=== PATIENT | male | born 1960 | race Caucasian/White ===

== ENCOUNTER 2021-07-23 04:07 | Emergency (ER) | payer BC ==
[~2021-07-23] VITALS: Ht 177.8 cm; Wt 78.2 kg
--- NOTE | 2021-07-23 05:04 | PHYS DOC ---
Past Medical History Past Surgical History: No Surgical History Smoking Status: Never Smoker Alcohol Use: None General Adult EDM: Chief Complaint: FLU SYMPTOM HPI: HPI: Patient is a 61-year-old male presenting for constellation of symptoms. States he started developing URI symptoms after being exposed to his son and who had similar self-limiting symptoms that resolved after 4 days. He is currently on day 6 of symptoms and reports ongoing nasal congestion, rhinorrhea, postnasal drip, sore throat, shortness of breath, fever and chills, aches, fatigue, nausea and looser stools than usual. He has been taking ibuprofen and full-strength aspirin at home without significant relief, nothing known makes worse. He does not go to the doctor, has no primary care physician, has no known medical issues and takes no medications routinely on a daily basis. Denies any tobacco alcohol or illicit drug abuse. He did not get the COVID-19 vaccination Review of Systems: Review of Systems: Fourteen body systems of review of systems have been reviewed. See HPI for pertinent positives and negative responses, other lund all other systems are negative, non-pertinent or non-contributory Heart Score: C/O Chest Pain: No HEART Score for Chest Pain: HEART Score for Chest Pain Response (Comments) Value History Slighlty/Non-Suspicious 0 ECG Normal 0 Age >45 - < 65 1 Risk Factors 1 or 2 Risk Factors 1 Troponin < Normal Limit 0 Total 2 Risk Factors: Risk Factors: DM, Current or recent (<one month) smoker, HTN, HLP, family history of CAD, obesity. Risk Scores: Score 0 - 3: 2.5% MACE over next 6 weeks - Discharge Home Score 4 - 6: 20.3% MACE over next 6 weeks - Admit for Clinical Observation Score 7 - 10: 72.7% MACE over next 6 weeks - Early Invasive Strategies Current Medications: Current Medications Medications (Trade) Dose Ordered Sig/Florecita Start Time Stop Time Status Last Admin Dose Admin Acetaminophen (Tylenol) 1,000 mg 1X ONCE 07/23/21 05:00 07/23/21 05:01 UNV Allergies: Allergies: Allergies Coded Allergies Type Severity Reaction Last Updated Verified No Known Drug Allergies 07/23/21 No Physical Exam: PE: General: Appears well, non toxic but does appear slightly uncomfortable and is hot to the touch Skin: Warm, dry. Normal for ethnicity. HEENT: Atraumatic. PERRLA. Rhinorrhea and congestion. Nasal turbinates boggy b/l. Moist mucous membranes. Uvula midline. Maintaining secretions. No phonation changes. Neck: Trachea midline. Normal ROM. No stridor. Respiratory: Normal WOB. CTAB w/o w/r/r. No tachypnea. Cardiovascular: Regular rate and rhythm. Normal peripheral perfusion. Abdomen: Soft. Non tender. No distension. Back: Normal ROM. Musculoskeletal: No swelling or deformity. Neuro: Alert and oriented x 4. MAEE. Lymph: No cervical LAD. Psych: Normal affect and mood. Current Patient Data: Vital Signs: Vital Signs Date Time Temp Pulse Resp B/P (MAP) Pulse Ox O2 Delivery O2 Flow Rate FiO2 07/23/21 04:35 102.7 95 20 114/70 (85) 95 Room Air 102.7 EKG: EKG: EKG ordered and interpreted by myself 0517 hrs. as sinus rhythm at 78 bpm, unremarkable intervals, no axis deviation, suspect T wave inversion noted in lead III otherwise no new ischemic findings, no STEMI Radiology/Procedures: Radiology/Procedures: EXAM: AP View of the chest DATE: 07/23/2021 5:26 AM INDICATION: Reason: COUGH, COVID+ / Spl. Instructions: / History: COMPARISON: No Prior FINDINGS: The heart is not enlarged. Mediastinal and hilar contours are normal. Patchy opacities bilaterally in the lower lungs peripherally. No pleural effusion or pneumothorax. IMPRESSION: 1. Bilateral parenchymal opacities likely consolidative process such as COVID pneumonia Electronically signed by: Toby Ruffin MD (07/23/2021 5:49 AM) [facility] Course & Med Decision Making: Course & Med Decision Making Pertinent Labs and Imaging studies reviewed. (See chart for details) [] Dragon Disclaimer: Dragon Disclaimer: This electronic medical record was generated, in whole or in part, using a voice recognition dictation system. Departure Departure Impression: Primary Impression: COVID-19 Disposition: HOME / SELF CARE / HOMELESS Condition: STABLE Referrals: NO PCP (PCP) Additional Instructions: As discussed prior to your departure, your vitals, physical exam and comprehensive ER work-up were nonconcerning for any emergent or surgical issues. You are found to be positive for COVID-19 and the findings on your chest x-ray were suspicious for developing bilateral pneumonia. We discussed potential treatment plans and joint decision was made to start antibiotic therapy with close outpatient follow-up when safe to do so with continued supportive care practices recommended. Please take prescribed antibiotic as scheduled to completion. In addition, please check your oxygen reading using a finger pulse ox and/or smart watch and contact your primary care provider and/or present back to the ER if your oxygen level ever drops below 90%. Please utilize Tylenol and/or ibuprofen for aches, pains and fever. If any concerning signs or symptoms present prior to outpatient follow-up please do not hesitate to come back for repeat evaluation. Scripts Azithromycin (AZITHROMYCIN TABLET) 250 Mg Tablet 250 MG PO DAILY for ANTI-BIOTIC for 4 Days, #4 TAB 0 Refills Prov: BELINDA HICKEY DO 07/23/21 BELINDA HICKEY DO Jul 23, 2021 05:04
[2021-07-23 05:26] LABS: BASO % 1 % (0-3); EOS % 0 % (0-3); HEMATOCRIT 40.2 % (39.0-53.0); HEMOGLOBIN 14.4 g/dL (13.0-17.5); LYMPH # 0.6 x10^3/uL (1.0-4.8); LYMPH % 21 % (24-48); MEAN CORPUSCULAR HEMOGLOBIN 33 pg (25-35); MEAN CORPUSCULAR HGB CONC 36 g/dL (31-37); MEAN CORPUSCULAR VOLUME 91 fL (79-100); MONO # 0.2 x10^3/uL (0.0-1.1); MONO % 9 % (0-9); NEUT # 1.8 x10^3/uL (1.8-7.7); NEUT % 69 % (31-73); PLATELET COUNT 128 x10^3/uL (140-400); RED BLOOD COUNT 4.41 x10^6/uL (4.30-5.70); RED CELL DISTRIBUTION WIDTH 12.7 % (11.5-14.5); WHITE BLOOD COUNT 2.6 x10^3/uL (4.0-11.0)
[2021-07-23] MEDS ORDERED: ACETAMINOPHEN 500 MG TABLET PO ONE (05:30)
[2021-07-23 05:42] LABS: CALCIUM 7.9 mg/dL (8.5-10.1); CREATININE 1.1 mg/dL (0.7-1.3); GFR 68.3
--- NOTE | 2021-07-23 05:51 | RAD ---
EXAM: AP View of the chest DATE: 07/23/2021 5:26 AM INDICATION: Reason: COUGH, COVID+ / Spl. Instructions: / History: COMPARISON: No Prior FINDINGS: The heart is not enlarged. Mediastinal and hilar contours are normal. Patchy opacities bilaterally in the lower lungs peripherally. No pleural effusion or pneumothorax. IMPRESSION: 1. Bilateral parenchymal opacities likely consolidative process such as COVID pneumonia Electronically signed by: Toby Ruffin MD (07/23/2021 5:49 AM) DEONTE
[2021-07-23 05:56] LABS: ALBUMIN 3.1 g/dL (3.4-5.0); ALBUMIN/GLOBULIN RATIO 1.1 (1.0-1.7); TOTAL BILIRUBIN 0.7 mg/dL (0.2-1.0); TOTAL PROTEIN 5.9 g/dL (6.4-8.2)
[2021-07-23 06:05] VITALS: BP 95/66
[2021-07-23] MEDS ORDERED: AZIT250T6 PO (06:15)
[2021-07-23] MEDS ORDERED: AZITHROMYCIN 250 MG TABLET. PO ONE (06:30)
--- NOTE | 2021-07-23 07:19 | EKG ---
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
== END 2021-07-23 06:33 | disposition home or self-care (01) ==
LOC: ER 04:07
DX: U07.1 COVID-19 (principal)
CPT/HCPCS: 36415; 71045; 80053; 83605; 84484; 85025; 87040; 87426; 93005; 99285-25

== ENCOUNTER 2021-07-26 03:34 | Inpatient (IN) | payer BC ==
[~2021-07-26] VITALS: Ht 182.9 cm; Wt 71.0 kg
[~2021-07-26 03:34] MED LIST: AZIT250T6 PO
--- NOTE | 2021-07-26 03:57 | PHYS DOC ---
Past Medical History Past Surgical History: No Surgical History Smoking Status: Never Smoker Alcohol Use: None General Adult EDM: Chief Complaint: SHORTNESS OF BREATH HPI: HPI: Patient is a 61 year old male without pertinent past medical history who presents with fever, chills, fatigue, and low pulse oximetry readings. Tested positive for Covid earlier this week. Symptoms have persisted despite treatment with Tylenol, ibuprofen he continues to have fevers. He checked his pulse ox and it was dropping into the 80s so presented for emergency treatment. Denies chest pain, lower extremity edema. He is not vaccinated against Covid Review of Systems: Review of Systems: Constitutional: Ports fever, chills, and fatigue [] Eyes: Denies change in visual acuity. [] HENT: Denies nasal congestion or sore throat. [] Respiratory: Reports cough, shortness of breath Cardiovascular: Denies chest pain or edema. [] GI: Denies abdominal pain, nausea, vomiting, bloody stools or diarrhea. [] : Denies dysuria. [] Musculoskeletal: Denies back pain or joint pain. [] Integument: Denies rash. [] Neurologic: Denies headache, focal weakness or sensory changes. [] Endocrine: Denies polyuria or polydipsia. [] Lymphatic: Denies swollen glands. [] Psychiatric: Denies depression or anxiety. [] Heart Score: C/O Chest Pain: No Risk Factors: Risk Factors: DM, Current or recent (<one month) smoker, HTN, HLP, family history of CAD, obesity. Risk Scores: Score 0 - 3: 2.5% MACE over next 6 weeks - Discharge Home Score 4 - 6: 20.3% MACE over next 6 weeks - Admit for Clinical Observation Score 7 - 10: 72.7% MACE over next 6 weeks - Early Invasive Strategies Current Medications: Current Medications Medications (Trade) Dose Ordered Sig/Florecita Start Time Stop Time Status Last Admin Dose Admin Dexamethasone Sodium Phosphate (Decadron) 6 mg 1X ONCE 07/26/21 04:00 07/26/21 04:01 Allergies: Allergies: Allergies Coded Allergies Type Severity Reaction Last Updated Verified No Known Drug Allergies 07/23/21 No Physical Exam: PE: Constitutional: Ill-appearing, no distress HENT: Normocephalic, atraumatic, Eyes: conjunctiva normal, no discharge. [] Neck: Normal range of motion, no tenderness, supple, no stridor. [] Cardiovascular:Heart rate regular rhythm, no murmur [] Lungs & Thorax: Crackles in bilateral bases and mixed expiratory wheezes throug hout. Slight tachypnea. Satting in low 90s on 2 L/min nasal cannula. Abdomen: Bowel sounds normal, soft, no tenderness, no masses, no pulsatile masses. [] Skin: Warm, dry, no erythema, no rash. [] Back: No tenderness, no CVA tenderness. [] Extremities: No tenderness, no cyanosis, no clubbing, ROM intact, no edema. [] Neurologic: Alert and oriented X 3, normal motor function, normal sensory function, no focal deficits noted. [] Psychologic: Affect normal, judgement normal, mood normal. [] EKG: EKG: [] Radiology/Procedures: Radiology/Procedures: [] Course & Med Decision Making: Course & Med Decision Making Pertinent Labs and Imaging studies reviewed. (See chart for details) Is a 61-year-old male without pertinent past medical history who was recently diagnosed with Covid. On arrival was hypoxic in the 80s. Corrected with 2 L/min nasal cannula. We will obtain chest x-ray, EKG, basic labs. We will give dexamethasone 6 mg. Will clearly require admission for hypoxic respiratory failure in the setting of Covid infection. [id number] Scar Disclaimer: Scar Disclaimer: This electronic medical record was generated, in whole or in part, using a voice recognition dictation system. Departure Departure Impression: Primary Impression: Respiratory failure with hypoxia Additional Impression: COVID-19 Disposition: ADMITTED INPATIENT Admitting Physician: LAYLA (Jannie) Condition: STABLE Referrals: NO PCP (PCP) PATRICE PERALTA MD Jul 26, 2021 03:57
[2021-07-26 03:59] LABS: BASO % 1 % (0-3); EOS % 0 % (0-3); HEMATOCRIT 43.4 % (39.0-53.0); HEMOGLOBIN 15.6 g/dL (13.0-17.5); LYMPH # 0.6 x10^3/uL (1.0-4.8); LYMPH % 10 % (24-48); MEAN CORPUSCULAR HEMOGLOBIN 32 pg (25-35); MEAN CORPUSCULAR HGB CONC 36 g/dL (31-37); MEAN CORPUSCULAR VOLUME 90 fL (79-100); MONO # 0.2 x10^3/uL (0.0-1.1); MONO % 3 % (0-9); NEUT # 5.1 x10^3/uL (1.8-7.7); NEUT % 86 % (31-73); PLATELET COUNT 183 x10^3/uL (140-400); RED BLOOD COUNT 4.81 x10^6/uL (4.30-5.70); RED CELL DISTRIBUTION WIDTH 13.1 % (11.5-14.5); WHITE BLOOD COUNT 5.9 x10^3/uL (4.0-11.0)
[2021-07-26] MEDS ORDERED: DEXAMETHASONE SOD PHOS 4 MG/ML VIAL IVP ONE (04:00)
[2021-07-26 04:06] LABS: CALCIUM 8.4 mg/dL (8.5-10.1); CREATININE 1.2 mg/dL (0.7-1.3); GFR 61.8; POTASSIUM 3.8 mmol/L (3.5-5.1)
[2021-07-26 04:12] LABS: ALBUMIN/GLOBULIN RATIO 0.8 (1.0-1.7); TOTAL BILIRUBIN 0.7 mg/dL (0.2-1.0); TOTAL PROTEIN 6.8 g/dL (6.4-8.2)
--- NOTE | 2021-07-26 04:14 | RAD ---
EXAM: AP View of the chest DATE: 07/26/2021 3:50 AM INDICATION: Reason: sob, covid / Spl. Instructions: / History: COMPARISON: 07/23/2021 FINDINGS: The heart is not enlarged. Mediastinal and hilar contours are normal. Bilateral parenchymal airspace opacities are new and increased compared to 07/23/2021. No pleural effusion or pneumothorax. IMPRESSION: Bilateral parenchymal airspace opacities are new and increased compared to 07/23/2021. Electronically signed by: Toby Ruffin MD (07/26/2021 4:11 AM) DEONTE
--- NOTE | 2021-07-26 06:30 | EKG ---
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
[2021-07-26 07:40] VITALS: BP 115/70
[2021-07-26] MEDS ORDERED: traMADol 50 MG TABLET PO PRN (08:15)
[2021-07-26] MEDS ORDERED: fentaNYL PF VIAL 100 MCG/2 ML VIAL IVP PRN (08:15)
[2021-07-26] MEDS ORDERED: ONDANSETRON PF 4 MG/2 ML VIAL. IVP PRN (08:15)
--- NOTE | 2021-07-26 08:15 | PDOC1 ---
History and Physical Date of Admission Date of Admission DATE: 07/26/21 TIME: 08:06 Identification/Chief Complaint Chief Complaint Shortness of breath Source Source: Patient History of Present Illness History of Present Illness Mr Jalloh is a 61 year old male with no past medical history who presents with fever, chills, fatigue, and progressive shortness of breath. Started feeling badly on 07/18/2021. He thinks on 07/16/2021 he was exposed to COVID 19 at the ED at [facility] when he took his son there for URI symptoms. Has has loss of appetite and loss of taste and smell since 07/20/2021 overnight. His symptoms progressed over the weekend and failed to improve so he came to the emergency department on 07/23/2021 and was tested positive for COVID-19. Symptoms have persisted despite treatment with Tylenol, ibuprofen he continues to have fevers. He checked his pulse ox and it was dropping into the 80s so presented for emergency treatment. Denies chest pain, lower extremity edema. He is not vaccinated against Covid 19, does not smoke, drink, or use illicit drugs. Lives with his and son at home. WBC 5.9, Hb 15.6, platelets 183, NA 134, K3.8, BUN 13, CR 1.2, glucose 113, calcium 8.4, bilirubin 0.7, AST 53, ALT 34, alk phos 43, albumin 3. EKG normal sinus rhythm rate of [address] segment abnormalities or T wave inversions QTC 439 Chest radiograph worsened bilaterally with interstitial changes since 07/23/2021. Admitted for further care. Past Medical History Cardiovascular: No pertinent hx Past Surgical History Past Surgical History: No pertinent history Family History Family History Reviewed Family History: No Significant Social History Smoke: No ALCOHOL: none Drugs: None Current Problem List Problem List Problems Medical Problems: (1) COVID-19 Status: Acute (2) Respiratory failure with hypoxia Status: Acute Current Medications Current Medications Current Medications Dexamethasone Sodium Phosphate (Decadron) 6 mg 1X ONCE IVP Last administered on 07/26/21at 04:25; Start 07/26/21 at 04:00; Stop 07/26/21 at 04:01; Status DC Active Scripts Active Azithromycin Tablet (Azithromycin) 250 Mg Tablet 250 Mg PO DAILY 4 Days Allergies Allergies: Coded Allergies: No Known Drug Allergies (Unverified , 07/23/21) ROS General: YES: Chills, Night Sweats, Fatigue, Malaise, Appetite; No: Other PSYCHOLOGICAL ROS: No: Anxiety, Behavioral Disorder, Concentration difficultie, Decreased libido, Depression, Disorientation, Hallucinations, Hostility, Irritablity, Memory difficulties, Mood Swings, Obsessive thoughts, Physical abuse, Sexual abuse, Sleep disturbances, Suicidal ideation, Other Eyes: No Blurry vision, No Decreased vision, No Double vision, No Dry eyes, No Excessive tearing, No Eye Pain, No Itchy Eyes, No Loss of vision, No Photophob ia, No Scotomata, No Uses contacts, No Uses glasses, No Other HEENT: No: Heacaches, Visual Changes, Hearing change, Nasal congestion, Nasal discharge, Oral lesions, Sinus pain, Sore Throat, Epistaxis, Sneezing, Snoring, Tinnitus, Vertigo, Vocal changes, Other ALLERGY AND IMMUNOLOGY: No: Hives, Insect Bite Sensitivity, Itchy/Watery Eyes, Nasal Congestion, Post Nasal Drip, Seasonal Allergies, Other Hematological and Lymphatic: No: Bleeding Problems, Blood Clots, Blood Transfusions, Brusing, Night Sweats, Pallor, Swollen Lymph Nodes, Other ENDOCRINE: No: Breast Changes, Galactorrhea, Hair Pattern Changes, Hot Flashes, Malaise/lethargy, Mood Swings, Palpitations, Polydipsia/polyuria, Skin Changes, Temperature Intolerance, Unexpected Weight Changes, Other Breast: No New/Changing Breast Lumps, No Nipple changes, No Nipple discharge, No Other Respiratory: YES: Cough, Shortness of breath, SOB with excertion, Tachypnea; No: Hemoptysis, Orthopnea, Pleuritic Pain, Sputum Changes, Stridor, Wheezing, Other Cardiovascular: No Chest Pain, No Palpitations, No Orthopnea, No Paroxysmal Noc. Dyspnea, No Edema, No Lt Headedness, No Other Gastrointestinal: No Nausea, No Vomiting, No Abdominal Pain, No Diarrhea, No Constipation, No Melena, No Hematochezia, No Other Genitourinary: No Dysuria, No Frequency, No Incontinence, No Hematuria, No Retention, No Discharge, No Urgency, No Pain, No Flank Pain, No Other, No , No , No , No , No , No , No Musculoskeletal: No Gait Disturbance, No Joint Pain, No Joint Stiffness, No Joint Swelling, No Muscle Pain, No Muscular Weakness, No Pain In:, No Swelling In:, No Other Neurological: No Behavorial Changes, No Bowel/Bladder ControlChng, No Confusion, No Dizziness, No Gait Disturbance, No Headaches, No Impaired Coord/balance, No Memory Loss, No Numbness/Tingling, No Seizures, No Speech Problems, No Tremors, No Visual Changes, No Weakness, No Other Skin: No Dry Skin, No Eczema, No Hair Changes, No Lumps, No Mole Changes, No Mottling, No Nail Changes, No Pruritus, No Rash, No Skin Lesion Changes, No Other, No Acne Physical Exam General: Alert, Oriented X3, Cooperative, mild distress HEENT: Atraumatic, PERRLA, EOMI, Mucous membr. moist/pink Lungs: Other (Bibasilar crackles) Heart: S1S2, RRR, no thrills, no rubs, no gallops, no murmurs Abdomen: Normal bowel sounds, Soft, No tenderness, No hepatosplenomegaly, No masses Rectal Exam: not examined Extremities: No clubbing, No cyanosis, No edema, Normal pulses, No tenderness/swelling Skin: No rashes, No breakdown, No significant lesion Neuro: Normal gait, Normal speech, Strength at 5/5 X4 ext, Normal tone, Sensation intact, Cranial nerves 3-12 NL, Reflexes 2+ Psych/Mental Status: Mental status NL, Mood NL Vitals Vitals Vital Signs Date Time Temp Pulse Resp B/P (MAP) Pulse Ox O2 Delivery O2 Flow Rate FiO2 07/26/21 07:40 98.0 82 20 115/70 (85) 95 Nasal Cannula 2.0 98.0 Labs Labs Laboratory Tests Test 07/26/21 03:49 White Blood Count 5.9 x10^3/uL (4.0-11.0) Red Blood Count 4.81 x10^6/uL (4.30-5.70) Hemoglobin 15.6 g/dL (13.0-17.5) Hematocrit 43.4 % (39.0-53.0) Mean Corpuscular Volume 90 fL (79-100) Mean Corpuscular Hemoglobin 32 pg (25-35) Mean Corpuscular Hemoglobin Concent 36 g/dL (31-37) Red Cell Distribution Width 13.1 % (11.5-14.5) Platelet Count 183 x10^3/uL (140-400) Neutrophils (%) (Auto) 86 % (31-73) Lymphocytes (%) (Auto) 10 % (24-48) Monocytes (%) (Auto) 3 % (0-9) Eosinophils (%) (Auto) 0 % (0-3) Basophils (%) (Auto) 1 % (0-3) Neutrophils # (Auto) 5.1 x10^3/uL (1.8-7.7) Lymphocytes # (Auto) 0.6 x10^3/uL (1.0-4.8) Monocytes # (Auto) 0.2 x10^3/uL (0.0-1.1) Eosinophils # (Auto) 0.0 x10^3/uL (0.0-0.7) Basophils # (Auto) 0.0 x10^3/uL (0.0-0.2) Sodium Level 134 mmol/L (136-145) Potassium Level 3.8 mmol/L (3.5-5.1) Chloride Level 100 mmol/L (98-107) Carbon Dioxide Level 25 mmol/L (21-32) Anion Gap 9 (6-14) Blood Urea Nitrogen 13 mg/dL (8-26) Creatinine 1.2 mg/dL (0.7-1.3) Estimated GFR (Cockcroft-Gault) 61.8 BUN/Creatinine Ratio 11 (6-20) Glucose Level 113 mg/dL (70-99) Calcium Level 8.4 mg/dL (8.5-10.1) Total Bilirubin 0.7 mg/dL (0.2-1.0) Aspartate Amino Transf (AST/SGOT) 53 U/L (15-37) Alanine Aminotransferase (ALT/SGPT) 34 U/L (16-63) Alkaline Phosphatase 43 U/L (46-116) Total Protein 6.8 g/dL (6.4-8.2) Albumin 3.0 g/dL (3.4-5.0) Albumin/Globulin Ratio 0.8 (1.0-1.7) Laboratory Tests Test 07/26/21 03:49 White Blood Count 5.9 x10^3/uL (4.0-11.0) Red Blood Count 4.81 x10^6/uL (4.30-5.70) Hemoglobin 15.6 g/dL (13.0-17.5) Hematocrit 43.4 % (39.0-53.0) Mean Corpuscular Volume 90 fL (79-100) Mean Corpuscular Hemoglobin 32 pg (25-35) Mean Corpuscular Hemoglobin Concent 36 g/dL (31-37) Red Cell Distribution Width 13.1 % (11.5-14.5) Platelet Count 183 x10^3/uL (140-400) Neutrophils (%) (Auto) 86 % (31-73) Lymphocytes (%) (Auto) 10 % (24-48) Monocytes (%) (Auto) 3 % (0-9) Eosinophils (%) (Auto) 0 % (0-3) Basophils (%) (Auto) 1 % (0-3) Neutrophils # (Auto) 5.1 x10^3/uL (1.8-7.7) Lymphocytes # (Auto) 0.6 x10^3/uL (1.0-4.8) Monocytes # (Auto) 0.2 x10^3/uL (0.0-1.1) Eosinophils # (Auto) 0.0 x10^3/uL (0.0-0.7) Basophils # (Auto) 0.0 x10^3/uL (0.0-0.2) Sodium Level 134 mmol/L (136-145) Potassium Level 3.8 mmol/L (3.5-5.1) Chloride Level 100 mmol/L (98-107) Carbon Dioxide Level 25 mmol/L (21-32) Anion Gap 9 (6-14) Blood Urea Nitrogen 13 mg/dL (8-26) Creatinine 1.2 mg/dL (0.7-1.3) Estimated GFR (Cockcroft-Gault) 61.8 BUN/Creatinine Ratio 11 (6-20) Glucose Level 113 mg/dL (70-99) Calcium Level 8.4 mg/dL (8.5-10.1) Total Bilirubin 0.7 mg/dL (0.2-1.0) Aspartate Amino Transf (AST/SGOT) 53 U/L (15-37) Alanine Aminotransferase (ALT/SGPT) 34 U/L (16-63) Alkaline Phosphatase 43 U/L (46-116) Total Protein 6.8 g/dL (6.4-8.2) Albumin 3.0 g/dL (3.4-5.0) Albumin/Globulin Ratio 0.8 (1.0-1.7) Images Images The heart is not enlarged. Mediastinal and hilar contours are normal. Bilateral parenchymal airspace opacities are new and increased compared to 07/23/2021. No pleural effusion or pneumothorax. IMPRESSION: Bilateral parenchymal airspace opacities are new and increased compared to 07/23/2021. VTE Prophylaxis Ordered VTE Prophylaxis Devices: No VTE Pharmacological Prophylaxi: Yes Assessment/Plan Assessment/Plan A/P: Acute respiratory failure with hypoxia - Decadron remdesivir therapy. Wean O2 as tolerated. Supportive care otherwise COVID 19 with pneumonia -as above. Transaminitis - likely related to COVID 19 Hyponatremia - likely nutritional, not eating prior to arrival Moderate protein calorie malnutrition - due to viral illness FEN - Regular diet PPX - lovenox FULL CODE Dispo - inpatient Justifications for Admission Other Justification JERRY CUELLO MD Jul 26, 2021 08:15
[2021-07-26 10:30] VITALS: BP 109/64
--- NOTE | 2021-07-26 11:28 | NUR ---
SW following. Discussed with RN, pt from home with family, 2L (does not use oxygen at home), regular diet. COVID-19 positive (pt did not get the COVID vaccine). RN advised no SW needs at this time. SW will continue to follow.
[2021-07-26] MEDS: MAGNESIUM OXIDE 400 MG TABLET PO SCH (11:45)
[2021-07-26] MEDS: ENOXAPARIN 40 MG/0.4 ML SYRINGE. SQ SCH (11:45)
[2021-07-26] MEDS: ZINC SULFATE 220 MG CAPSULE. PO SCH (11:45)
[2021-07-26] MEDS: THIAMINE 100 MG TABLET. PO SCH (11:46)
[2021-07-26] MEDS: guaiFENesin DM 200MG/20MG 10 ML SYRUP PO PRN ×2 (11:46→17:23)
[2021-07-26] MEDS: ACETAMINOPHEN 325 MG TABLET. PO PRN ×2 (11:46→17:23)
[2021-07-26] MEDS ORDERED: REMDESIVIR LOAD in IV NORMAL SALINE 250ML TV IV ONE (12:00)
[2021-07-26 15:00] VITALS: BP 110/62
[2021-07-26 19:00] VITALS: BP 113/59
[2021-07-26 23:00] VITALS: BP 104/68
[2021-07-27 03:00] VITALS: BP 130/70
[2021-07-27] MEDS: guaiFENesin DM 200MG/20MG 10 ML SYRUP PO PRN ×3 (04:27→21:46)
[2021-07-27] MEDS: ACETAMINOPHEN 325 MG TABLET. PO PRN (04:28)
[2021-07-27 07:00] VITALS: BP 111/68
[2021-07-27 08:55] LABS: BASO % 0 % (0-3); EOS % 0 % (0-3); HEMATOCRIT 41.2 % (39.0-53.0); HEMOGLOBIN 14.4 g/dL (13.0-17.5); LYMPH # 0.6 x10^3/uL (1.0-4.8); LYMPH % 8 % (24-48); MEAN CORPUSCULAR HEMOGLOBIN 32 pg (25-35); MEAN CORPUSCULAR HGB CONC 35 g/dL (31-37); MEAN CORPUSCULAR VOLUME 93 fL (79-100); MONO # 0.5 x10^3/uL (0.0-1.1); MONO % 6 % (0-9); NEUT # 7.1 x10^3/uL (1.8-7.7); NEUT % 87 % (31-73); PLATELET COUNT 228 x10^3/uL (140-400); RED BLOOD COUNT 4.46 x10^6/uL (4.30-5.70); RED CELL DISTRIBUTION WIDTH 13.2 % (11.5-14.5); WHITE BLOOD COUNT 8.2 x10^3/uL (4.0-11.0)
[2021-07-27 09:05] LABS: ALBUMIN 2.5 g/dL (3.4-5.0); ALBUMIN/GLOBULIN RATIO 0.7 (1.0-1.7); C-REACTIVE PROTEIN 69.2 mg/L (0-3.3); CALCIUM 8.5 mg/dL (8.5-10.1); GFR 76.2; POTASSIUM 4.3 mmol/L (3.5-5.1); TOTAL BILIRUBIN 0.5 mg/dL (0.2-1.0); TOTAL PROTEIN 6.3 g/dL (6.4-8.2)
[2021-07-27] MEDS: MAGNESIUM OXIDE 400 MG TABLET PO SCH (09:18)
[2021-07-27] MEDS: DEXAMETHASONE SOD PHOS 4 MG/ML VIAL IVP SCH (09:18)
[2021-07-27] MEDS: ZINC SULFATE 220 MG CAPSULE. PO SCH (09:18)
[2021-07-27] MEDS: THIAMINE 100 MG TABLET. PO SCH (09:18)
[2021-07-27] MEDS: ENOXAPARIN 40 MG/0.4 ML SYRINGE. SQ SCH (09:18)
[2021-07-27 11:00] VITALS: BP 110/62
[2021-07-27] MEDS: REMDESIVIR 100mg in NORMAL SALINE 250ML X 4 DAYS IV SCH (12:04)
--- NOTE | 2021-07-27 13:12 | NUR ---
SW following. Discussed with RN, pt needing high flow oxygen, COVID-19 positive. RN advised no SW needs at this time. Pt not ready to leave the hospital. SW will continue to follow.
--- NOTE | 2021-07-27 13:22 | PDOC ---
[employer] PROGRESS NOTE Date of Service DOS: DATE: 07/27/21 TIME: 13:17 Chief Complaint Chief Complaint Acute respiratory failure with hypoxia - Decadron remdesivir therapy. Wean O2 as tolerated. Supportive care otherwise COVID 19 with pneumonia -as above. Transaminitis - likely related to COVID 19 Hyponatremia - likely nutritional, not eating prior to arrival Severe protein calorie malnutrition - due to viral illness FEN - Regular diet PPX - lovenox FULL CODE Dispo - inpatient History of Present Illness History of Present Illness Mr Jalloh is a 61 year old male with no past medical history who presents with fever, chills, fatigue, and progressive shortness of breath. Started feeling badly on 07/18/2021. He thinks on 07/16/2021 he was exposed to COVID 19 at the ED at [facility] when he took his son there for URI symptoms. Has has loss of appetite and loss of taste and smell since 07/20/2021 overnight. His symptoms progressed over the weekend and failed to improve so he came to the emergency department on 07/23/2021 and was tested positive for COVID-19. Symptoms have persisted despite treatment with Tylenol, ibuprofen he continues to have fevers. He checked his pulse ox and it was dropping into the 80s so presented for emergency treatment. Denies chest pain, lower extremity edema. He is not vaccinated against Covid 19, does not smoke, drink, or use illicit drugs. Lives with his and son at home. WBC 5.9, Hb 15.6, platelets 183, NA 134, K3.8, BUN 13, CR 1.2, glucose 113, calcium 8.4, bilirubin 0.7, AST 53, ALT 34, alk phos 43, albumin 3. EKG normal sinus rhythm rate of [address] segment abnormalities or T wave inversions QTC 439 Chest radiograph worsened bilaterally with interstitial changes since 07/23/2021. Admitted for further care. 07/27/2021: Low-grade fever overnight, T-max 99.8 F. Breathing on 10 L nasal cannula. CRP 69.2, not quite the cutoff to qualify for Actemra. Continue r emdesivir, with close monitoring of LFTs (last day should be 07/30). Continue Decadron to complete 10-day course. Vitals/I&O Vitals/I&O: Vital Signs Date Time Temp Pulse Resp B/P (MAP) Pulse Ox O2 Delivery O2 Flow Rate FiO2 07/27/21 11:00 98.3 83 20 110/62 (78) 93 Nasal Cannula 10.0 98.3 I & O 07/26/21 07/26/21 07/27/21 15:00 23:00 07:00 Intake Total 720 ml 240 ml Balance 720 ml 240 ml Physical Exam General: Alert, Oriented X3, Cooperative, mild distress Heart: Regular rate Lungs: Other (No increased work of breathing) Abdomen: Normal bowel sounds, Soft, No tenderness, No hepatosplenomegaly, No masses Extremities: No clubbing, No cyanosis, No edema, Normal pulses, No tenderness/swelling Skin: No rashes, No breakdown, No significant lesion Labs Labs: Laboratory Tests Test 07/27/21 08:25 White Blood Count 8.2 x10^3/uL (4.0-11.0) Red Blood Count 4.46 x10^6/uL (4.30-5.70) Hemoglobin 14.4 g/dL (13.0-17.5) Hematocrit 41.2 % (39.0-53.0) Mean Corpuscular Volume 93 fL (79-100) Mean Corpuscular Hemoglobin 32 pg (25-35) Mean Corpuscular Hemoglobin Concent 35 g/dL (31-37) Red Cell Distribution Width 13.2 % (11.5-14.5) Platelet Count 228 x10^3/uL (140-400) Neutrophils (%) (Auto) 87 % (31-73) Lymphocytes (%) (Auto) 8 % (24-48) Monocytes (%) (Auto) 6 % (0-9) Eosinophils (%) (Auto) 0 % (0-3) Basophils (%) (Auto) 0 % (0-3) Neutrophils # (Auto) 7.1 x10^3/uL (1.8-7.7) Lymphocytes # (Auto) 0.6 x10^3/uL (1.0-4.8) Monocytes # (Auto) 0.5 x10^3/uL (0.0-1.1) Eosinophils # (Auto) 0.0 x10^3/uL (0.0-0.7) Basophils # (Auto) 0.0 x10^3/uL (0.0-0.2) Sodium Level 138 mmol/L (136-145) Potassium Level 4.3 mmol/L (3.5-5.1) Chloride Level 103 mmol/L (98-107) Carbon Dioxide Level 25 mmol/L (21-32) Anion Gap 10 (6-14) Blood Urea Nitrogen 19 mg/dL (8-26) Creatinine 1.0 mg/dL (0.7-1.3) Estimated GFR (Cockcroft-Gault) 76.2 BUN/Creatinine Ratio 19 (6-20) Glucose Level 120 mg/dL (70-99) Calcium Level 8.5 mg/dL (8.5-10.1) Total Bilirubin 0.5 mg/dL (0.2-1.0) Aspartate Amino Transf (AST/SGOT) 84 U/L (15-37) Alanine Aminotransferase (ALT/SGPT) 63 U/L (16-63) Alkaline Phosphatase 42 U/L (46-116) C-Reactive Protein, Quantitative 69.2 mg/L (0-3.3) Total Protein 6.3 g/dL (6.4-8.2) Albumin 2.5 g/dL (3.4-5.0) Albumin/Globulin Ratio 0.7 (1.0-1.7) Assessment and Plan Assessmemt and Plan Problems Medical Problems: (1) COVID-19 Status: Acute (2) Respiratory failure with hypoxia Status: Acute Comment Review of Relevant I have reviewed the following items omari (where applicable) has been applied. Medications: Current Medications Medications (Trade) Dose Ordered Sig/Florecita Route PRN Reason Start Time Stop Time Status Last Admin Dose Admin Dexamethasone Sodium Phosphate (Decadron) 6 mg DAILY IVP 07/27/21 09:00 07/27/21 09:18 Remdesivir 100 mg/ Sodium Chloride 230 ml @ 460 mls/hr Q24H IV 07/27/21 12:00 07/30/21 12:29 07/27/21 12:04 Justifications for Admission Other Justification ANTONIO PETERSON MD Jul 27, 2021 13:22
[2021-07-27 15:00] VITALS: BP 135/79
[2021-07-27 19:00] VITALS: BP 134/69
[2021-07-27 23:00] VITALS: BP 123/78
[2021-07-28] VITALS (18 sets, daily range): BP systolic 111–136; BP diastolic 62–84
--- NOTE | 2021-07-28 08:05 | NUR ---
NURSING NOTE Pt transferred to ICU 115 at this time. Rapid response was called at 0720 when pts oxygen level would not go above 87% on 15L/NC and 15L/NRB. Pt not wanting to transfer off of the unit, wants to stay on this unit with current oxygen regimine. Dr. Amaya called and notified, pt to transfer to ICU. Explained to pt need to transfer for closer monitoring and increasing oxygen needs. Pt vu. Ayah HERNANDEZ transferred pt to 115 via bed at 0805.
--- NOTE | 2021-07-28 08:48 | PDOC ---
[employer] PROGRESS NOTE Date of Service DOS: DATE: 07/28/21 TIME: 08:46 Chief Complaint Chief Complaint Acute respiratory failure with hypoxia - Decadron remdesivir therapy. Wean O2 as tolerated. Supportive care otherwise COVID 19 with pneumonia -as above. Transaminitis - likely related to COVID 19 Hyponatremia - likely nutritional, not eating prior to arrival Severe protein calorie malnutrition - due to viral illness FEN - Regular diet PPX - lovenox FULL CODE Dispo - inpatient History of Present Illness History of Present Illness Mr Jalloh is a 61 year old male with no past medical history who presents with fever, chills, fatigue, and progressive shortness of breath. Started feeling badly on 07/18/2021. He thinks on 07/16/2021 he was exposed to COVID 19 at the ED at [facility] when he took his son there for URI symptoms. Has has loss of appetite and loss of taste and smell since 07/20/2021 overnight. His symptoms progressed over the weekend and failed to improve so he came to the emergency department on 07/23/2021 and was tested positive for COVID-19. Symptoms have persisted despite treatment with Tylenol, ibuprofen he continues to have fevers. He checked his pulse ox and it was dropping into the 80s so presented for emergency treatment. Denies chest pain, lower extremity edema. He is not vaccinated against Covid 19, does not smoke, drink, or use illicit drugs. Lives with his and son at home. WBC 5.9, Hb 15.6, platelets 183, NA 134, K3.8, BUN 13, CR 1.2, glucose 113, calcium 8.4, bilirubin 0.7, AST 53, ALT 34, alk phos 43, albumin 3. EKG normal sinus rhythm rate of [address] segment abnormalities or T wave inversions QTC 439 Chest radiograph worsened bilaterally with interstitial changes since 07/23/2021. Admitted for further care. 07/27/2021: Low-grade fever overnight, T-max 99.8 F. Breathing on 10 L nasal cannula. CRP 69.2, not quite the cutoff to qualify for Actemra. Continue r emdesivir, with close monitoring of LFTs (last day should be 07/30). Continue Decadron to complete 10-day course. 07/28/2021: Afebrile. States he had a rough morning, woke up with some coughing spells that causeed O2 desaturation. Was previously breathing on 10-12 L by nasal cannula. He was moved to ICU because felt he would benefit on high flow nasal cannula. When seen in ICU he states he is already breathing much better. Explained to patient that if this is the case he may be moved back to his origin al room if his oxygen saturations can be maintained on less than high flow nasal cannula. Continue remdesivir, with monitoring of LFTs. Continue Decadron. Supportive care. Vitals/I&O Vitals/I&O: Vital Signs Date Time Temp Pulse Resp B/P (MAP) Pulse Ox O2 Delivery O2 Flow Rate FiO2 07/28/21 03:00 98.3 80 22 111/72 (85) 92 Nasal Cannula 15.0 98.3 I & O 07/27/21 07/27/21 07/28/21 15:00 23:00 07:00 Intake Total 700 ml 300 ml 100 ml Output Total 900 ml Balance 700 ml 300 ml -800 ml Physical Exam General: Alert, Oriented X3, Cooperative, mild distress Heart: Regular rate Lungs: Other (No increased work of breathing) Abdomen: Normal bowel sounds, Soft, No tenderness, No hepatosplenomegaly, No masses Extremities: No clubbing, No cyanosis, No edema, Normal pulses, No tenderness/swelling Skin: No rashes, No breakdown, No significant lesion Assessment and Plan Assessmemt and Plan Problems Medical Problems: (1) COVID-19 Status: Acute (2) Respiratory failure with hypoxia Status: Acute Comment Review of Relevant I have reviewed the following items omari (where applicable) has been applied. Medications: Current Medications Medications (Trade) Dose Ordered Sig/Florecita Route PRN Reason Start Time Stop Time Status Last Admin Dose Admin Dexamethasone Sodium Phosphate (Decadron) 6 mg DAILY IVP 07/27/21 09:00 07/27/21 09:18 Remdesivir 100 mg/ Sodium Chloride 230 ml @ 460 mls/hr Q24H IV 07/27/21 12:00 07/30/21 12:29 07/27/21 12:04 Justifications for Admission Other Justification ANTONIO PETERSON MD Jul 28, 2021 08:48
--- NOTE | 2021-07-28 08:54 | NUR ---
Pt transferred to room 115 from 548 due to hypoxia for vapotherm. Pt placed on vapotherm at 40 liters and 100% + 15L NRB. O2 sats are now in the lower 90's. Pt states he feels like he is breathing easier. notified of transfer.
[2021-07-28] MEDS: ENOXAPARIN 40 MG/0.4 ML SYRINGE. SQ SCH (09:06)
[2021-07-28] MEDS: DEXAMETHASONE SOD PHOS 4 MG/ML VIAL IVP SCH (09:07)
[2021-07-28] MEDS: MAGNESIUM OXIDE 400 MG TABLET PO SCH (09:07)
[2021-07-28] MEDS: THIAMINE 100 MG TABLET. PO SCH (09:07)
[2021-07-28] MEDS: ZINC SULFATE 220 MG CAPSULE. PO SCH (09:07)
--- NOTE | 2021-07-28 09:30 | CONS ---
DATE OF CONSULTATION: 07/28/2021 PULMONARY CONSULTATION ATTENDING PHYSICIAN: Dr. Valderrama. REASON FOR CONSULTATION: Respiratory failure, COVID-19 pneumonia, ARDS. HISTORY OF PRESENT ILLNESS: The patient is a 61-year-old male who has no significant past medical history. The patient was brought into the hospital with increasing dyspnea, hypoxia, fever, chills and progressive fatigue. The patient was exposed to COVID-19 at ED at [facility] when he took his son there for URI symptoms. He lost appetite, loss of taste and smell. The patient's symptoms progressed over the weekend and failed to improve, so he came to the Emergency Room. He was tested positive for COVID-19. He is unvaccinated. He was transferred to ICU this morning due to drop in his oxygen saturations. He is currently on Vapotherm at 100% FiO2 and also in addition a nonrebreather mask. He is comfortable now. His chest x-ray on admission revealed bilateral patchy airspace opacities, which is increased since admission. Consultation requested for further evaluation and management. PAST MEDICAL HISTORY: Essentially unremarkable. PAST SURGICAL HISTORY: None. ALLERGIES: None. MEDICATIONS: Reviewed as listed in the [facility] including remdesivir and dexamethasone. REVIEW OF SYSTEMS: Not obtained from the patient as he is in respiratory isolation. PHYSICAL EXAMINATION: VITAL SIGNS: Reviewed. Afebrile. Pulse ox 92% on current FiO2. GENERAL: Visual exam done due to COVID-19. No paradoxical breathing. No skin rash. EXTREMITIES: No leg edema. LABORATORY DATA: Reviewed. Sodium 138, potassium 4.3. BUN and creatinine are 19 and 1.0. His bilirubin is normal. AST has increased from 53 to 84. C-reactive protein is 69. Albumin is 2.5. IMPRESSION: 1. Acute hypoxic respiratory failure secondary to COVID-19 viral pneumonia/acute lung injury/early acute respiratory distress syndrome. 2. No significant tobacco history. 3. Abnormal chest x-ray consistent with viral pneumonia. 4. Moderate protein-calorie malnutrition. Albumin level of 2.5. 5. Abnormal liver function test due to COVID-19. 6. Increased C-reactive protein. RECOMMENDATIONS: 1. Continue present current FiO2 with 100% oxygen via Vapotherm at 40 liters and 15 liters nonrebreather mask. 2. We will monitor respiratory status closely. At present, no need for intubation. 3. Continue remdesivir, although may not be as effective at this point. 4. Dexamethasone per protocol. 5. We will follow up with liver function test stat today. If LFTs are not worsen, we will see if tocilizumab is available in the hospital. He will be a candidate for that. 6. Lovenox for DVT prophylaxis. 7. Supportive care. 8. The patient is critically ill in the ICU. Chart reviewed, imaging studies reviewed. Total critical care time [address]: Rodolfo TID: [id number]
[2021-07-28 10:33] LABS: BASO % 0 % (0-3); EOS % 0 % (0-3); HEMATOCRIT 40.2 % (39.0-53.0); HEMOGLOBIN 14.2 g/dL (13.0-17.5); LYMPH # 0.6 x10^3/uL (1.0-4.8); LYMPH % 6 % (24-48); MEAN CORPUSCULAR HEMOGLOBIN 33 pg (25-35); MEAN CORPUSCULAR HGB CONC 35 g/dL (31-37); MEAN CORPUSCULAR VOLUME 93 fL (79-100); MONO # 0.7 x10^3/uL (0.0-1.1); MONO % 7 % (0-9); NEUT # 8.5 x10^3/uL (1.8-7.7); NEUT % 87 % (31-73); PLATELET COUNT 283 x10^3/uL (140-400); RED BLOOD COUNT 4.34 x10^6/uL (4.30-5.70); RED CELL DISTRIBUTION WIDTH 13.4 % (11.5-14.5); WHITE BLOOD COUNT 9.8 x10^3/uL (4.0-11.0)
[2021-07-28 10:59] LABS: ALBUMIN 2.4 g/dL (3.4-5.0); ALBUMIN/GLOBULIN RATIO 0.7 (1.0-1.7); CALCIUM 8.1 mg/dL (8.5-10.1); DIRECT BILIRUBIN 0.2 mg/dL (0.0-0.2); GFR 76.2; POTASSIUM 4.3 mmol/L (3.5-5.1); TOTAL BILIRUBIN 0.6 mg/dL (0.2-1.0)
[2021-07-28] MEDS: REMDESIVIR 100mg in NORMAL SALINE 250ML X 4 DAYS IV SCH (11:40)
[2021-07-28] MEDS ORDERED: TOCILIZUMAB 640 MG in IV NORMAL SALINE 100ML 68 ML IV ONE (12:30)
[2021-07-28] MEDS: STERILE WATER for RESP 1,000 ML BAG. INH PRN (16:05)
[2021-07-28] MEDS: guaiFENesin DM 200MG/20MG 10 ML SYRUP PO PRN (20:42)
[2021-07-29] VITALS (24 sets, daily range): BP systolic 99–136; BP diastolic 52–78
[2021-07-29] MEDS: STERILE WATER for RESP 1,000 ML BAG. INH PRN (05:23)
[2021-07-29 05:36] LABS: BASO % 0 % (0-3); EOS % 0 % (0-3); HEMATOCRIT 40.9 % (39.0-53.0); HEMOGLOBIN 14.3 g/dL (13.0-17.5); LYMPH # 0.7 x10^3/uL (1.0-4.8); LYMPH % 10 % (24-48); MEAN CORPUSCULAR HEMOGLOBIN 32 pg (25-35); MEAN CORPUSCULAR HGB CONC 35 g/dL (31-37); MEAN CORPUSCULAR VOLUME 93 fL (79-100); MONO # 0.6 x10^3/uL (0.0-1.1); MONO % 9 % (0-9); NEUT # 5.5 x10^3/uL (1.8-7.7); NEUT % 81 % (31-73); PLATELET COUNT 310 x10^3/uL (140-400); RED BLOOD COUNT 4.41 x10^6/uL (4.30-5.70); RED CELL DISTRIBUTION WIDTH 13.1 % (11.5-14.5); WHITE BLOOD COUNT 6.9 x10^3/uL (4.0-11.0)
[2021-07-29 05:52] LABS: ALBUMIN 2.4 g/dL (3.4-5.0); ALBUMIN/GLOBULIN RATIO 0.7 (1.0-1.7); CALCIUM 8.5 mg/dL (8.5-10.1); CREATININE 0.9 mg/dL (0.7-1.3); GFR 86.1; POTASSIUM 4.3 mmol/L (3.5-5.1); TOTAL BILIRUBIN 0.8 mg/dL (0.2-1.0)
[2021-07-29] MEDS: MAGNESIUM OXIDE 400 MG TABLET PO SCH (09:41)
[2021-07-29] MEDS: THIAMINE 100 MG TABLET. PO SCH (09:41)
[2021-07-29] MEDS: DEXAMETHASONE SOD PHOS 4 MG/ML VIAL IVP SCH (09:41)
[2021-07-29] MEDS: ZINC SULFATE 220 MG CAPSULE. PO SCH (09:41)
[2021-07-29] MEDS: ENOXAPARIN 40 MG/0.4 ML SYRINGE. SQ SCH (09:41)
--- NOTE | 2021-07-29 10:54 | PDOC ---
PULMONARY PROGRESS NOTES DATE: 07/29/21 TIME: 10:49 Subjective Patient remains on 100% FiO2 via Vapotherm and a nonrebreather mask Vitals Vital Signs Date Time Temp Pulse Resp B/P (MAP) Pulse Ox O2 Delivery O2 Flow Rate FiO2 07/29/21 10:00 76 20 99/61 (74) 92 vapotherm 40.0 07/29/21 08:00 98.7 98.7 Comments Visual exam done due to COVID-19. No shortness of breath. Lungs: Other (No increased work of breathing) Labs Laboratory Tests Test 07/28/21 10:20 07/29/21 05:15 White Blood Count 9.8 x10^3/uL (4.0-11.0) 6.9 x10^3/uL (4.0-11.0) Red Blood Count 4.34 x10^6/uL (4.30-5.70) 4.41 x10^6/uL (4.30-5.70) Hemoglobin 14.2 g/dL (13.0-17.5) 14.3 g/dL (13.0-17.5) Hematocrit 40.2 % (39.0-53.0) 40.9 % (39.0-53.0) Mean Corpuscular Volume 93 fL (79-100) 93 fL (79-100) Mean Corpuscular Hemoglobin 33 pg (25-35) 32 pg (25-35) Mean Corpuscular Hemoglobin Concent 35 g/dL (31-37) 35 g/dL (31-37) Red Cell Distribution Width 13.4 % (11.5-14.5) 13.1 % (11.5-14.5) Platelet Count 283 x10^3/uL (140-400) 310 x10^3/uL (140-400) Neutrophils (%) (Auto) 87 % (31-73) 81 % (31-73) Lymphocytes (%) (Auto) 6 % (24-48) 10 % (24-48) Monocytes (%) (Auto) 7 % (0-9) 9 % (0-9) Eosinophils (%) (Auto) 0 % (0-3) 0 % (0-3) Basophils (%) (Auto) 0 % (0-3) 0 % (0-3) Neutrophils # (Auto) 8.5 x10^3/uL (1.8-7.7) 5.5 x10^3/uL (1.8-7.7) Lymphocytes # (Auto) 0.6 x10^3/uL (1.0-4.8) 0.7 x10^3/uL (1.0-4.8) Monocytes # (Auto) 0.7 x10^3/uL (0.0-1.1) 0.6 x10^3/uL (0.0-1.1) Eosinophils # (Auto) 0.0 x10^3/uL (0.0-0.7) 0.0 x10^3/uL (0.0-0.7) Basophils # (Auto) 0.0 x10^3/uL (0.0-0.2) 0.0 x10^3/uL (0.0-0.2) Sodium Level 138 mmol/L (136-145) 136 mmol/L (136-145) Potassium Level 4.3 mmol/L (3.5-5.1) 4.3 mmol/L (3.5-5.1) Chloride Level 102 mmol/L (98-107) 103 mmol/L (98-107) Carbon Dioxide Level 26 mmol/L (21-32) 26 mmol/L (21-32) Anion Gap 10 (6-14) 7 (6-14) Blood Urea Nitrogen 20 mg/dL (8-26) 21 mg/dL (8-26) Creatinine 1.0 mg/dL (0.7-1.3) 0.9 mg/dL (0.7-1.3) Estimated GFR (Cockcroft-Gault) 76.2 86.1 BUN/Creatinine Ratio 20 (6-20) 23 (6-20) Glucose Level 112 mg/dL (70-99) 117 mg/dL (70-99) Calcium Level 8.1 mg/dL (8.5-10.1) 8.5 mg/dL (8.5-10.1) Total Bilirubin 0.6 mg/dL (0.2-1.0) 0.8 mg/dL (0.2-1.0) Direct Bilirubin 0.2 mg/dL (0.0-0.2) Aspartate Amino Transf (AST/SGOT) 75 U/L (15-37) 78 U/L (15-37) Alanine Aminotransferase (ALT/SGPT) 85 U/L (16-63) 98 U/L (16-63) Alkaline Phosphatase 45 U/L (46-116) 50 U/L (46-116) Total Protein 6.0 g/dL (6.4-8.2) 6.0 g/dL (6.4-8.2) Albumin 2.4 g/dL (3.4-5.0) 2.4 g/dL (3.4-5.0) Albumin/Globulin Ratio 0.7 (1.0-1.7) 0.7 (1.0-1.7) Laboratory Tests Test 07/29/21 05:15 White Blood Count 6.9 x10^3/uL (4.0-11.0) Red Blood Count 4.41 x10^6/uL (4.30-5.70) Hemoglobin 14.3 g/dL (13.0-17.5) Hematocrit 40.9 % (39.0-53.0) Mean Corpuscular Volume 93 fL (79-100) Mean Corpuscular Hemoglobin 32 pg (25-35) Mean Corpuscular Hemoglobin Concent 35 g/dL (31-37) Red Cell Distribution Width 13.1 % (11.5-14.5) Platelet Count 310 x10^3/uL (140-400) Neutrophils (%) (Auto) 81 % (31-73) Lymphocytes (%) (Auto) 10 % (24-48) Monocytes (%) (Auto) 9 % (0-9) Eosinophils (%) (Auto) 0 % (0-3) Basophils (%) (Auto) 0 % (0-3) Neutrophils # (Auto) 5.5 x10^3/uL (1.8-7.7) Lymphocytes # (Auto) 0.7 x10^3/uL (1.0-4.8) Monocytes # (Auto) 0.6 x10^3/uL (0.0-1.1) Eosinophils # (Auto) 0.0 x10^3/uL (0.0-0.7) Basophils # (Auto) 0.0 x10^3/uL (0.0-0.2) Sodium Level 136 mmol/L (136-145) Potassium Level 4.3 mmol/L (3.5-5.1) Chloride Level 103 mmol/L (98-107) Carbon Dioxide Level 26 mmol/L (21-32) Anion Gap 7 (6-14) Blood Urea Nitrogen 21 mg/dL (8-26) Creatinine 0.9 mg/dL (0.7-1.3) Estimated GFR (Cockcroft-Gault) 86.1 BUN/Creatinine Ratio 23 (6-20) Glucose Level 117 mg/dL (70-99) Calcium Level 8.5 mg/dL (8.5-10.1) Total Bilirubin 0.8 mg/dL (0.2-1.0) Aspartate Amino Transf (AST/SGOT) 78 U/L (15-37) Alanine Aminotransferase (ALT/SGPT) 98 U/L (16-63) Alkaline Phosphatase 50 U/L (46-116) Total Protein 6.0 g/dL (6.4-8.2) Albumin 2.4 g/dL (3.4-5.0) Albumin/Globulin Ratio 0.7 (1.0-1.7) Medications Active Scripts Medications Dose Route/Sig Max Daily Dose Days Date Category Azithromycin Tablet (Azithromycin) 250 Mg Tablet 250 Mg PO DAILY 4 07/23/21 Rx Impression . 1. Acute hypoxic respiratory failure secondary to COVID-19 viral pneumonia/acute lung injury/early acute respiratory distress syndrome. 2. No significant tobacco history. 3. Abnormal chest x-ray consistent with viral pneumonia. 4. Moderate protein-calorie malnutrition. Albumin level of 2.5. 5. Abnormal liver function test due to COVID-19. 6. Increased C-reactive protein. Plan . 1. Continue present current FiO2 with 100% oxygen via Vapotherm at 40 liters and 15 liters nonrebreather mask. 2. We will monitor respiratory status closely. At present, no need for intubation. 3. Continue remdesivir, although may not be as effective at this point. 4. Dexamethasone per protocol. 5. Status post Actemra 07/28/2021. 6. Lovenox for DVT prophylaxis. 7. Supportive care. 8. The patient is critically ill but stable DAVE OROZCO MD Jul 29, 2021 10:54
[2021-07-29] MEDS: REMDESIVIR 100mg in NORMAL SALINE 250ML X 4 DAYS IV SCH (12:52)
--- NOTE | 2021-07-29 13:58 | PDOC ---
[employer] PROGRESS NOTE Date of Service DOS: DATE: 07/29/21 TIME: 13:56 Chief Complaint Chief Complaint Acute respiratory failure with hypoxia - Decadron remdesivir therapy. Wean O2 as tolerated. Supportive care otherwise COVID 19 with pneumonia -as above. Transaminitis - likely related to COVID 19 Hyponatremia - likely nutritional, not eating prior to arrival Severe protein calorie malnutrition - due to viral illness History of Present Illness History of Present Illness 07/29/2021 Patient seen and examined in the ICU Discussed with RN Chart reviewed Mr Jalloh is a 61 year old male with no past medical history who presents with fever, chills, fatigue, and progressive shortness of breath. Started feeling badly on 07/18/2021. He thinks on 07/16/2021 he was exposed to COVID 19 at the ED at [facility] when he took his son there for URI symptoms. Has has loss of appetite and loss of taste and smell since 07/20/2021 overnight. His symptoms progressed over the weekend and failed to improve so he came to the emergency department on 07/23/2021 and was tested positive for COVID-19. Symptoms have persisted despite treatment with Tylenol, ibuprofen he continues to have fevers. He checked his pulse ox and it was dropping into the 80s so presented for emergency treatment. Denies chest pain, lower extremity edema. He is not vaccinated against Covid 19, does not smoke, drink, or use illicit drugs. Lives with his and son at home. WBC 5.9, Hb 15.6, platelets 183, NA 134, K3.8, BUN 13, CR 1.2, glucose 113, calcium 8.4, bilirubin 0.7, AST 53, ALT 34, alk phos 43, albumin 3. EKG normal sinus rhythm rate of [address] segment abnormalities or T wave inversions QTC 439 Chest radiograph worsened bilaterally with interstitial changes since 07/23/2021. Admitted for further care. 07/27/2021: Low-grade fever overnight, T-max 99.8 F. Breathing on 10 L nasal cannula. CRP 69.2, not quite the cutoff to qualify for Actemra. Continue remdesivir, with close monitoring of LFTs (last day should be 07/30). Continue Decadron to complete 10-day course. 07/28/2021: Afebrile. States he had a rough morning, woke up with some coughing spells that causeed O2 desaturation. Was previously breathing on 10-12 L by nasal cannula. He was moved to ICU because felt he would benefit on high flow nasal cannula. When seen in ICU he states he is already breathing much better. Explained to patient that if this is the case he may be moved back to his original room if his oxygen saturations can be maintained on less than high flow nasal cannula. Continue remdesivir, with monitoring of LFTs. Continue Decadron. Supportive care. Vitals/I&O Vitals/I&O: Vital Signs Date Time Temp Pulse Resp B/P (MAP) Pulse Ox O2 Delivery O2 Flow Rate FiO2 07/29/21 13:51 91 VAPOTHERM 40.0 07/29/21 13:00 84 20 130/74 (92) 07/29/21 12:00 98.4 98.4 I & O 07/28/21 07/28/21 07/29/21 15:00 23:00 07:00 Intake Total 1050 ml 480 ml Output Total 1425 ml 600 ml Balance -375 ml -120 ml Physical Exam General: Alert, Oriented X3, Cooperative, mild distress Heart: Regular rate Lungs: Other (No increased work of breathing) Abdomen: Normal bowel sounds, Soft, No tenderness, No hepatosplenomegaly, No masses Extremities: No clubbing, No cyanosis, No edema, Normal pulses, No tenderness/swelling Skin: No rashes, No breakdown, No significant lesion Labs Labs: Laboratory Tests Test 07/29/21 05:15 White Blood Count 6.9 x10^3/uL (4.0-11.0) Red Blood Count 4.41 x10^6/uL (4.30-5.70) Hemoglobin 14.3 g/dL (13.0-17.5) Hematocrit 40.9 % (39.0-53.0) Mean Corpuscular Volume 93 fL (79-100) Mean Corpuscular Hemoglobin 32 pg (25-35) Mean Corpuscular Hemoglobin Concent 35 g/dL (31-37) Red Cell Distribution Width 13.1 % (11.5-14.5) Platelet Count 310 x10^3/uL (140-400) Neutrophils (%) (Auto) 81 % (31-73) Lymphocytes (%) (Auto) 10 % (24-48) Monocytes (%) (Auto) 9 % (0-9) Eosinophils (%) (Auto) 0 % (0-3) Basophils (%) (Auto) 0 % (0-3) Neutrophils # (Auto) 5.5 x10^3/uL (1.8-7.7) Lymphocytes # (Auto) 0.7 x10^3/uL (1.0-4.8) Monocytes # (Auto) 0.6 x10^3/uL (0.0-1.1) Eosinophils # (Auto) 0.0 x10^3/uL (0.0-0.7) Basophils # (Auto) 0.0 x10^3/uL (0.0-0.2) Sodium Level 136 mmol/L (136-145) Potassium Level 4.3 mmol/L (3.5-5.1) Chloride Level 103 mmol/L (98-107) Carbon Dioxide Level 26 mmol/L (21-32) Anion Gap 7 (6-14) Blood Urea Nitrogen 21 mg/dL (8-26) Creatinine 0.9 mg/dL (0.7-1.3) Estimated GFR (Cockcroft-Gault) 86.1 BUN/Creatinine Ratio 23 (6-20) Glucose Level 117 mg/dL (70-99) Calcium Level 8.5 mg/dL (8.5-10.1) Total Bilirubin 0.8 mg/dL (0.2-1.0) Aspartate Amino Transf (AST/SGOT) 78 U/L (15-37) Alanine Aminotransferase (ALT/SGPT) 98 U/L (16-63) Alkaline Phosphatase 50 U/L (46-116) Total Protein 6.0 g/dL (6.4-8.2) Albumin 2.4 g/dL (3.4-5.0) Albumin/Globulin Ratio 0.7 (1.0-1.7) Assessment and Plan Assessmemt and Plan Problems Medical Problems: (1) COVID-19 Status: Acute (2) Respiratory failure with hypoxia Status: Acute Acute respiratory failure with hypoxia - Decadron remdesivir therapy. Wean O2 as tolerated. Supportive care otherwise COVID 19 with pneumonia -as above. Transaminitis - likely related to COVID 19 Hyponatremia - likely nutritional, not eating prior to arrival Severe protein calorie malnutrition - due to viral illness Plan ICU monitoring Covid protocol Steroids Remdesivir O2 Codeine cough syrup Aspirin Vitamins and minerals Antibiotics Appreciate pulmonary input Prognosis guarded 1. Acute hypoxic respiratory failure secondary to COVID-19 viral pneumonia/acute lung injury/early acute respiratory distress syndrome. 2. No significant tobacco history. 3. Abnormal chest x-ray consistent with viral pneumonia. 4. Moderate protein-calorie malnutrition. Albumin level of 2.5. 5. Abnormal liver function test due to COVID-19. 6. Increased C-reactive protein. Plan Plan . Per pulmonary recommendations please see below and we agree; 1 . Continue present current FiO2 with 100% oxygen via Vapotherm at 40 liters and 15 liters nonrebreather mask. 2. We will monitor respiratory status closely. At present, no need for intubation. 3. Continue remdesivir, although may not be as effective at this point. 4. Dexamethasone per protocol. 5. Status post Actemra 07/28/2021. 6. Lovenox for DVT prophylaxis. 7. Supportive care. 8. The patient is critically ill but stable Comment Review of Relevant I have reviewed the following items omari (where applicable) has been applied. Justifications for Admission Other Justification REBECCA POWELL III DO Jul 29, 2021 13:58
[2021-07-29] MEDS: guaiFENesin DM 200MG/20MG 10 ML SYRUP PO PRN (20:00)
[2021-07-30] VITALS (17 sets, daily range): BP systolic 94–117; BP diastolic 52–70
[2021-07-30] MEDS: STERILE WATER for RESP 1,000 ML BAG. INH PRN (03:47)
[2021-07-30 05:48] LABS: BASO % 0 % (0-3); EOS % 0 % (0-3); HEMATOCRIT 39.8 % (39.0-53.0); LYMPH # 0.9 x10^3/uL (1.0-4.8); LYMPH % 12 % (24-48); MEAN CORPUSCULAR HEMOGLOBIN 33 pg (25-35); MEAN CORPUSCULAR HGB CONC 35 g/dL (31-37); MEAN CORPUSCULAR VOLUME 92 fL (79-100); MONO # 0.4 x10^3/uL (0.0-1.1); MONO % 6 % (0-9); NEUT # 6.1 x10^3/uL (1.8-7.7); NEUT % 82 % (31-73); PLATELET COUNT 342 x10^3/uL (140-400); RED BLOOD COUNT 4.31 x10^6/uL (4.30-5.70); RED CELL DISTRIBUTION WIDTH 12.8 % (11.5-14.5); WHITE BLOOD COUNT 7.4 x10^3/uL (4.0-11.0)
[2021-07-30 06:11] LABS: ALBUMIN 2.3 g/dL (3.4-5.0); ALBUMIN/GLOBULIN RATIO 0.7 (1.0-1.7); CALCIUM 8.2 mg/dL (8.5-10.1); CREATININE 0.9 mg/dL (0.7-1.3); GFR 86.1; POTASSIUM 4.4 mmol/L (3.5-5.1); TOTAL BILIRUBIN 0.8 mg/dL (0.2-1.0); TOTAL PROTEIN 5.8 g/dL (6.4-8.2)
[2021-07-30] MEDS: guaiFENesin DM 200MG/20MG 10 ML SYRUP PO PRN ×3 (06:17→20:11)
[2021-07-30] MEDS ORDERED: POLYVINYL ALCOHOL 1.4% OPHTH SOLUTION 15ML BOTTLE. OU PRN (07:45)
[2021-07-30] MEDS: ZINC SULFATE 220 MG CAPSULE. PO SCH (08:33)
[2021-07-30] MEDS: ENOXAPARIN 40 MG/0.4 ML SYRINGE. SQ SCH (08:33)
[2021-07-30] MEDS: THIAMINE 100 MG TABLET. PO SCH (08:33)
[2021-07-30] MEDS: MAGNESIUM OXIDE 400 MG TABLET PO SCH (08:33)
[2021-07-30] MEDS: DEXAMETHASONE SOD PHOS 4 MG/ML VIAL IVP SCH (08:33)
--- NOTE | 2021-07-30 10:29 | PDOC ---
PULMONARY PROGRESS NOTES DATE: 07/30/21 TIME: 10:15 Subjective Patient currently on Vapotherm, 100% FiO2 and 40 L flow Feels slightly better Vitals Vital Signs Date Time Temp Pulse Resp B/P (MAP) Pulse Ox O2 Delivery O2 Flow Rate FiO2 07/30/21 08:50 90 VAPOTHERM 40.0 07/30/21 07:00 65 20 113/67 (82) 07/30/21 04:00 98.4 98.4 Comments Visual exam done due to COVID-19. No shortness of breath. Lungs: Other (No increased work of breathing) Labs Laboratory Tests Test 07/28/21 10:20 07/29/21 05:15 07/30/21 05:05 White Blood Count 9.8 x10^3/uL (4.0-11.0) 6.9 x10^3/uL (4.0-11.0) 7.4 x10^3/uL (4.0-11.0) Red Blood Count 4.34 x10^6/uL (4.30-5.70) 4.41 x10^6/uL (4.30-5.70) 4.31 x10^6/uL (4.30-5.70) Hemoglobin 14.2 g/dL (13.0-17.5) 14.3 g/dL (13.0-17.5) 14.0 g/dL (13.0-17.5) Hematocrit 40.2 % (39.0-53.0) 40.9 % (39.0-53.0) 39.8 % (39.0-53.0) Mean Corpuscular Volume 93 fL (79-100) 93 fL (79-100) 92 fL (79-100) Mean Corpuscular Hemoglobin 33 pg (25-35) 32 pg (25-35) 33 pg (25-35) Mean Corpuscular Hemoglobin Concent 35 g/dL (31-37) 35 g/dL (31-37) 35 g/dL (31-37) Red Cell Distribution Width 13.4 % (11.5-14.5) 13.1 % (11.5-14.5) 12.8 % (11.5-14.5) Platelet Count 283 x10^3/uL (140-400) 310 x10^3/uL (140-400) 342 x10^3/uL (140-400) Neutrophils (%) (Auto) 87 % (31-73) 81 % (31-73) 82 % (31-73) Lymphocytes (%) (Auto) 6 % (24-48) 10 % (24-48) 12 % (24-48) Monocytes (%) (Auto) 7 % (0-9) 9 % (0-9) 6 % (0-9) Eosinophils (%) (Auto) 0 % (0-3) 0 % (0-3) 0 % (0-3) Basophils (%) (Auto) 0 % (0-3) 0 % (0-3) 0 % (0-3) Neutrophils # (Auto) 8.5 x10^3/uL (1.8-7.7) 5.5 x10^3/uL (1.8-7.7) 6.1 x10^3/uL (1.8-7.7) Lymphocytes # (Auto) 0.6 x10^3/uL (1.0-4.8) 0.7 x10^3/uL (1.0-4.8) 0.9 x10^3/uL (1.0-4.8) Monocytes # (Auto) 0.7 x10^3/uL (0.0-1.1) 0.6 x10^3/uL (0.0-1.1) 0.4 x10^3/uL (0.0-1.1) Eosinophils # (Auto) 0.0 x10^3/uL (0.0-0.7) 0.0 x10^3/uL (0.0-0.7) 0.0 x10^3/uL (0.0-0.7) Basophils # (Auto) 0.0 x10^3/uL (0.0-0.2) 0.0 x10^3/uL (0.0-0.2) 0.0 x10^3/uL (0.0-0.2) Sodium Level 138 mmol/L (136-145) 136 mmol/L (136-145) 137 mmol/L (136-145) Potassium Level 4.3 mmol/L (3.5-5.1) 4.3 mmol/L (3.5-5.1) 4.4 mmol/L (3.5-5.1) Chloride Level 102 mmol/L (98-107) 103 mmol/L (98-107) 103 mmol/L (98-107) Carbon Dioxide Level 26 mmol/L (21-32) 26 mmol/L (21-32) 27 mmol/L (21-32) Anion Gap 10 (6-14) 7 (6-14) 7 (6-14) Blood Urea Nitrogen 20 mg/dL (8-26) 21 mg/dL (8-26) 19 mg/dL (8-26) Creatinine 1.0 mg/dL (0.7-1.3) 0.9 mg/dL (0.7-1.3) 0.9 mg/dL (0.7-1.3) Estimated GFR (Cockcroft-Gault) 76.2 86.1 86.1 BUN/Creatinine Ratio 20 (6-20) 23 (6-20) 21 (6-20) Glucose Level 112 mg/dL (70-99) 117 mg/dL (70-99) 104 mg/dL (70-99) Calcium Level 8.1 mg/dL (8.5-10.1) 8.5 mg/dL (8.5-10.1) 8.2 mg/dL (8.5-10.1) Total Bilirubin 0.6 mg/dL (0.2-1.0) 0.8 mg/dL (0.2-1.0) 0.8 mg/dL (0.2-1.0) Direct Bilirubin 0.2 mg/dL (0.0-0.2) Aspartate Amino Transf (AST/SGOT) 75 U/L (15-37) 78 U/L (15-37) 149 U/L (15-37) Alanine Aminotransferase (ALT/SGPT) 85 U/L (16-63) 98 U/L (16-63) 214 U/L (16-63) Alkaline Phosphatase 45 U/L (46-116) 50 U/L (46-116) 48 U/L (46-116) Total Protein 6.0 g/dL (6.4-8.2) 6.0 g/dL (6.4-8.2) 5.8 g/dL (6.4-8.2) Albumin 2.4 g/dL (3.4-5.0) 2.4 g/dL (3.4-5.0) 2.3 g/dL (3.4-5.0) Albumin/Globulin Ratio 0.7 (1.0-1.7) 0.7 (1.0-1.7) 0.7 (1.0-1.7) Laboratory Tests Test 07/30/21 05:05 White Blood Count 7.4 x10^3/uL (4.0-11.0) Red Blood Count 4.31 x10^6/uL (4.30-5.70) Hemoglobin 14.0 g/dL (13.0-17.5) Hematocrit 39.8 % (39.0-53.0) Mean Corpuscular Volume 92 fL (79-100) Mean Corpuscular Hemoglobin 33 pg (25-35) Mean Corpuscular Hemoglobin Concent 35 g/dL (31-37) Red Cell Distribution Width 12.8 % (11.5-14.5) Platelet Count 342 x10^3/uL (140-400) Neutrophils (%) (Auto) 82 % (31-73) Lymphocytes (%) (Auto) 12 % (24-48) Monocytes (%) (Auto) 6 % (0-9) Eosinophils (%) (Auto) 0 % (0-3) Basophils (%) (Auto) 0 % (0-3) Neutrophils # (Auto) 6.1 x10^3/uL (1.8-7.7) Lymphocytes # (Auto) 0.9 x10^3/uL (1.0-4.8) Monocytes # (Auto) 0.4 x10^3/uL (0.0-1.1) Eosinophils # (Auto) 0.0 x10^3/uL (0.0-0.7) Basophils # (Auto) 0.0 x10^3/uL (0.0-0.2) Sodium Level 137 mmol/L (136-145) Potassium Level 4.4 mmol/L (3.5-5.1) Chloride Level 103 mmol/L (98-107) Carbon Dioxide Level 27 mmol/L (21-32) Anion Gap 7 (6-14) Blood Urea Nitrogen 19 mg/dL (8-26) Creatinine 0.9 mg/dL (0.7-1.3) Estimated GFR (Cockcroft-Gault) 86.1 BUN/Creatinine Ratio 21 (6-20) Glucose Level 104 mg/dL (70-99) Calcium Level 8.2 mg/dL (8.5-10.1) Total Bilirubin 0.8 mg/dL (0.2-1.0) Aspartate Amino Transf (AST/SGOT) 149 U/L (15-37) Alanine Aminotransferase (ALT/SGPT) 214 U/L (16-63) Alkaline Phosphatase 48 U/L (46-116) Total Protein 5.8 g/dL (6.4-8.2) Albumin 2.3 g/dL (3.4-5.0) Albumin/Globulin Ratio 0.7 (1.0-1.7) Medications Active Scripts Medications Dose Route/Sig Max Daily Dose Days Date Category Azithromycin Tablet (Azithromycin) 250 Mg Tablet 250 Mg PO DAILY 4 07/23/21 Rx Impression . 1. Acute hypoxic respiratory failure secondary to COVID-19 viral pneumonia/acute lung injury/early acute respiratory distress syndrome. 2. No significant tobacco history. 3. Abnormal chest x-ray consistent with viral pneumonia. 4. Moderate protein-calorie malnutrition. Albumin level of 2.5. 5. Abnormal liver function test due to COVID-19. Plan . Updated 07/30 Continue Vapotherm Patient was lots of questions, I answered them to the best of my ability, wanted to know how long he was going to stay in the hospital. Continue current support with oxygen, received remdesivir, dexamethasone, also received Actemra Updated 07/29 1. Continue present current FiO2 with 100% oxygen via Vapotherm at 40 liters and 15 liters nonrebreather mask. 2. We will monitor respiratory status closely. At present, no need for intubation. 3. Continue remdesivir, although may not be as effective at this point. 4. Dexamethasone per protocol. 5. Status post Actemra 07/28/2021. 6. Lovenox for DVT prophylaxis. 7. Supportive care. 8. The patient is critically ill but stable TOO MALDONADO MD Jul 30, 2021 10:29
[2021-07-30] MEDS: REMDESIVIR 100mg in NORMAL SALINE 250ML X 4 DAYS IV SCH (11:34)
[2021-07-30 13:03] LABS: % BANDS 1 % (0-9); % LYMPHS 22 % (24-48); % MONOS 10 % (0-10); % SEGS 67 % (35-66)
[2021-07-30 13:05] LABS: PLT ESTIMATE ADEQUATE (ADEQUATE)
--- NOTE | 2021-07-30 14:13 | PDOC ---
[employer] PROGRESS NOTE Date of Service DOS: DATE: 07/30/21 TIME: 14:11 Chief Complaint Chief Complaint Acute respiratory failure with hypoxia - Decadron remdesivir therapy. Wean O2 as tolerated. Supportive care otherwise COVID 19 with pneumonia -as above. Transaminitis - likely related to COVID 19 Hyponatremia - likely nutritional, not eating prior to arrival Severe protein calorie malnutrition - due to viral illness History of Present Illness History of Present Illness 07/30/2021 Patient seen and examined in the ICU Chart reviewed Discussed with RN He is still on Vapotherm 07/29/2021 Patient seen and examined in the ICU Discussed with RN Chart reviewed Mr Jalloh is a 61 year old male with no past medical history who presents with fever, chills, fatigue, and progressive shortness of breath. Started feeling badly on 07/18/2021. He thinks on 07/16/2021 he was exposed to COVID 19 at the ED at [facility] when he took his son there for URI symptoms. Has has loss of appetite and loss of taste and smell since 07/20/2021 overnight. His symptoms progressed over the weekend and failed to improve so he came to the emergency department on 07/23/2021 and was tested positive for COVID-19. Symptoms have persisted despite treatment with Tylenol, ibuprofen he continues to have fevers. He checked his pulse ox and it was dropping into the 80s so presented for emergency treatment. Denies chest pain, lower extremity edema. He is not vaccinated against Covid 19, does not smoke, drink, or use illicit drugs. Lives with his and son at home. WBC 5.9, Hb 15.6, platelets 183, NA 134, K3.8, BUN 13, CR 1.2, glucose 113, calcium 8.4, bilirubin 0.7, AST 53, ALT 34, alk phos 43, albumin 3. EKG normal sinus rhythm rate of [address] segment abnormalities or T wave inversions QTC 439 Chest radiograph worsened bilaterally with interstitial changes since 07/23/2021. Admitted for further care. 07/27/2021: Low-grade fever overnight, T-max 99.8 F. Breathing on 10 L nasal cannula. CRP 69.2, not quite the cutoff to qualify for Actemra. Continue rem desivir, with close monitoring of LFTs (last day should be 07/30). Continue Decadron to complete 10-day course. 07/28/2021: Afebrile. States he had a rough morning, woke up with some coughing spells that causeed O2 desaturation. Was previously breathing on 10-12 L by nasal cannula. He was moved to ICU because felt he would benefit on high flow nasal cannula. When seen in ICU he states he is already breathing much better. Explained to patient that if this is the case he may be moved back to his original room if his oxygen saturations can be maintained on less than high flow nasal cannula. Continue remdesivir, with monitoring of LFTs. Continue Decadron. Supportive care. Vitals/I&O Vitals/I&O: Vital Signs Date Time Temp Pulse Resp B/P (MAP) Pulse Ox O2 Delivery O2 Flow Rate FiO2 07/30/21 13:35 97 VAPOTHERM 40.0 07/30/21 12:00 98.2 84 24 106/61 (76) 98.2 I & O 07/29/21 07/29/21 07/30/21 15:00 23:00 07:00 Intake Total 50 ml Output Total 1225 ml 325 ml 620 ml Balance -1175 ml -325 ml -620 ml Physical Exam General: Alert, Oriented X3, Cooperative, mild distress Heart: Regular rate Lungs: Other (No increased work of breathing) Abdomen: Normal bowel sounds, Soft, No tenderness, No hepatosplenomegaly, No masses Extremities: No clubbing, No cyanosis, No edema, Normal pulses, No tendernes s/swelling Skin: No rashes, No breakdown, No significant lesion Labs Labs: Laboratory Tests Test 07/30/21 05:05 White Blood Count 7.4 x10^3/uL (4.0-11.0) Red Blood Count 4.31 x10^6/uL (4.30-5.70) Hemoglobin 14.0 g/dL (13.0-17.5) Hematocrit 39.8 % (39.0-53.0) Mean Corpuscular Volume 92 fL (79-100) Mean Corpuscular Hemoglobin 33 pg (25-35) Mean Corpuscular Hemoglobin Concent 35 g/dL (31-37) Red Cell Distribution Width 12.8 % (11.5-14.5) Platelet Count 342 x10^3/uL (140-400) Neutrophils (%) (Auto) 82 % (31-73) Lymphocytes (%) (Auto) 12 % (24-48) Monocytes (%) (Auto) 6 % (0-9) Eosinophils (%) (Auto) 0 % (0-3) Basophils (%) (Auto) 0 % (0-3) Neutrophils # (Auto) 6.1 x10^3/uL (1.8-7.7) Lymphocytes # (Auto) 0.9 x10^3/uL (1.0-4.8) Monocytes # (Auto) 0.4 x10^3/uL (0.0-1.1) Eosinophils # (Auto) 0.0 x10^3/uL (0.0-0.7) Basophils # (Auto) 0.0 x10^3/uL (0.0-0.2) Segmented Neutrophils % 67 % (35-66) Band Neutrophils % 1 % (0-9) Lymphocytes % 22 % (24-48) Monocytes % 10 % (0-10) Platelet Estimate Adequate (ADEQUATE) Sodium Level 137 mmol/L (136-145) Potassium Level 4.4 mmol/L (3.5-5.1) Chloride Level 103 mmol/L (98-107) Carbon Dioxide Level 27 mmol/L (21-32) Anion Gap 7 (6-14) Blood Urea Nitrogen 19 mg/dL (8-26) Creatinine 0.9 mg/dL (0.7-1.3) Estimated GFR (Cockcroft-Gault) 86.1 BUN/Creatinine Ratio 21 (6-20) Glucose Level 104 mg/dL (70-99) Calcium Level 8.2 mg/dL (8.5-10.1) Total Bilirubin 0.8 mg/dL (0.2-1.0) Aspartate Amino Transf (AST/SGOT) 149 U/L (15-37) Alanine Aminotransferase (ALT/SGPT) 214 U/L (16-63) Alkaline Phosphatase 48 U/L (46-116) Total Protein 5.8 g/dL (6.4-8.2) Albumin 2.3 g/dL (3.4-5.0) Albumin/Globulin Ratio 0.7 (1.0-1.7) Assessment and Plan Assessmemt and Plan Problems Medical Problems: (1) COVID-19 Status: Acute (2) Respiratory failure with hypoxia Status: Acute Acute respiratory failure with hypoxia - Decadron remdesivir therapy. Wean O2 as tolerated. Supportive care otherwise COVID 19 with pneumonia -as above. Transaminitis - likely related to COVID 19 Hyponatremia - likely nutritional, not eating prior to arrival Severe protein calorie malnutrition - due to viral illness Plan ICU monitoring Covid protocol Continue Vapotherm Steroids Remdesivir O2 Codeine cough syrup Aspirin Vitamins and minerals Antibiotics Appreciate pulmonary input Prognosis guarded CC time 31-minute Comment Review of Relevant I have reviewed the following items omari (where applicable) has been applied. Justifications for Admission Other Justification REBECCA POWELL III DO Jul 30, 2021 14:13
[2021-07-31] VITALS: BP 104/62
[2021-07-31] MEDS: STERILE WATER for RESP 1,000 ML BAG. INH PRN ×2 (02:20→12:37)
[2021-07-31 04:00] VITALS: BP 127/77
[2021-07-31] MEDS: guaiFENesin DM 200MG/20MG 10 ML SYRUP PO PRN ×3 (07:28→20:14)
[2021-07-31 08:00] VITALS: BP 101/65
[2021-07-31] MEDS: ASPIRIN CHEWABLE 81 MG TABLET. PO SCH (08:34)
[2021-07-31] MEDS: MAGNESIUM OXIDE 400 MG TABLET PO SCH (08:35)
[2021-07-31] MEDS: ZINC SULFATE 220 MG CAPSULE. PO SCH (08:35)
[2021-07-31] MEDS: DEXAMETHASONE SOD PHOS 4 MG/ML VIAL IVP SCH (08:35)
[2021-07-31] MEDS: ENOXAPARIN 40 MG/0.4 ML SYRINGE. SQ SCH (08:35)
[2021-07-31] MEDS: THIAMINE 100 MG TABLET. PO SCH (08:35)
--- NOTE | 2021-07-31 08:46 | PDOC ---
PULMONARY PROGRESS NOTES DATE: 07/31/21 TIME: 08:46 Subjective Patient currently on Vapotherm, 100% FiO2 and 40 L flow Feels slightly better Vitals Vital Signs Date Time Temp Pulse Resp B/P (MAP) Pulse Ox O2 Delivery O2 Flow Rate FiO2 07/31/21 08:19 94 VAPOTHERM 40.0 07/31/21 04:00 62 20 127/77 (94) 07/30/21 20:00 98.4 98.4 Comments Visual exam done due to COVID-19. No shortness of breath. Lungs: Other (No increased work of breathing) Labs Laboratory Tests Test 07/30/21 05:05 White Blood Count 7.4 x10^3/uL (4.0-11.0) Red Blood Count 4.31 x10^6/uL (4.30-5.70) Hemoglobin 14.0 g/dL (13.0-17.5) Hematocrit 39.8 % (39.0-53.0) Mean Corpuscular Volume 92 fL (79-100) Mean Corpuscular Hemoglobin 33 pg (25-35) Mean Corpuscular Hemoglobin Concent 35 g/dL (31-37) Red Cell Distribution Width 12.8 % (11.5-14.5) Platelet Count 342 x10^3/uL (140-400) Neutrophils (%) (Auto) 82 % (31-73) Lymphocytes (%) (Auto) 12 % (24-48) Monocytes (%) (Auto) 6 % (0-9) Eosinophils (%) (Auto) 0 % (0-3) Basophils (%) (Auto) 0 % (0-3) Neutrophils # (Auto) 6.1 x10^3/uL (1.8-7.7) Lymphocytes # (Auto) 0.9 x10^3/uL (1.0-4.8) Monocytes # (Auto) 0.4 x10^3/uL (0.0-1.1) Eosinophils # (Auto) 0.0 x10^3/uL (0.0-0.7) Basophils # (Auto) 0.0 x10^3/uL (0.0-0.2) Segmented Neutrophils % 67 % (35-66) Band Neutrophils % 1 % (0-9) Lymphocytes % 22 % (24-48) Monocytes % 10 % (0-10) Platelet Estimate Adequate (ADEQUATE) Sodium Level 137 mmol/L (136-145) Potassium Level 4.4 mmol/L (3.5-5.1) Chloride Level 103 mmol/L (98-107) Carbon Dioxide Level 27 mmol/L (21-32) Anion Gap 7 (6-14) Blood Urea Nitrogen 19 mg/dL (8-26) Creatinine 0.9 mg/dL (0.7-1.3) Estimated GFR (Cockcroft-Gault) 86.1 BUN/Creatinine Ratio 21 (6-20) Glucose Level 104 mg/dL (70-99) Calcium Level 8.2 mg/dL (8.5-10.1) Total Bilirubin 0.8 mg/dL (0.2-1.0) Aspartate Amino Transf (AST/SGOT) 149 U/L (15-37) Alanine Aminotransferase (ALT/SGPT) 214 U/L (16-63) Alkaline Phosphatase 48 U/L (46-116) Total Protein 5.8 g/dL (6.4-8.2) Albumin 2.3 g/dL (3.4-5.0) Albumin/Globulin Ratio 0.7 (1.0-1.7) Medications Active Scripts Medications Dose Route/Sig Max Daily Dose Days Date Category Azithromycin Tablet (Azithromycin) 250 Mg Tablet 250 Mg PO DAILY 4 07/23/21 Rx Impression . 1. Acute hypoxic respiratory failure secondary to COVID-19 viral pneumonia/acute lung injury/early acute respiratory distress syndrome. 2. No significant tobacco history. 3. Abnormal chest x-ray consistent with viral pneumonia. 4. Moderate protein-calorie malnutrition. Albumin level of 2.5. 5. Abnormal liver function test due to COVID-19. Plan . Updated 07/30 Continue Vapotherm Patient was lots of questions, I answered them to the best of my ability, wanted to know how long he was going to stay in the hospital. Continue current support with oxygen, received remdesivir, dexamethasone, also received Actemra Updated 07/29 1. Continue present current FiO2 with 100% oxygen via Vapotherm at 40 liters and 15 liters nonrebreather mask. 2. We will monitor respiratory status closely. At present, no need for intubation. 3. Continue remdesivir, although may not be as effective at this point. 4. Dexamethasone per protocol. 5. Status post Actemra 07/28/2021. 6. Lovenox for DVT prophylaxis. 7. Supportive care. 8. The patient is critically ill but stable TOO MALDONADO MD Jul 31, 2021 08:46
--- NOTE | 2021-07-31 08:46 | PDOC ---
PULMONARY PROGRESS NOTES DATE: 07/31/21 TIME: 08:46 Subjective Patient states he feels better today less short of air patient currently on Vapotherm, 100% FiO2 and 40 L flow Vitals Vital Signs Date Time Temp Pulse Resp B/P (MAP) Pulse Ox O2 Delivery O2 Flow Rate FiO2 07/31/21 08:19 94 VAPOTHERM 40.0 07/31/21 04:00 62 20 127/77 (94) 07/30/21 20:00 98.4 98.4 Comments Visual exam done due to COVID-19. No shortness of breath. Lungs: Other (No increased work of breathing) Labs Laboratory Tests Test 07/30/21 05:05 White Blood Count 7.4 x10^3/uL (4.0-11.0) Red Blood Count 4.31 x10^6/uL (4.30-5.70) Hemoglobin 14.0 g/dL (13.0-17.5) Hematocrit 39.8 % (39.0-53.0) Mean Corpuscular Volume 92 fL (79-100) Mean Corpuscular Hemoglobin 33 pg (25-35) Mean Corpuscular Hemoglobin Concent 35 g/dL (31-37) Red Cell Distribution Width 12.8 % (11.5-14.5) Platelet Count 342 x10^3/uL (140-400) Neutrophils (%) (Auto) 82 % (31-73) Lymphocytes (%) (Auto) 12 % (24-48) Monocytes (%) (Auto) 6 % (0-9) Eosinophils (%) (Auto) 0 % (0-3) Basophils (%) (Auto) 0 % (0-3) Neutrophils # (Auto) 6.1 x10^3/uL (1.8-7.7) Lymphocytes # (Auto) 0.9 x10^3/uL (1.0-4.8) Monocytes # (Auto) 0.4 x10^3/uL (0.0-1.1) Eosinophils # (Auto) 0.0 x10^3/uL (0.0-0.7) Basophils # (Auto) 0.0 x10^3/uL (0.0-0.2) Segmented Neutrophils % 67 % (35-66) Band Neutrophils % 1 % (0-9) Lymphocytes % 22 % (24-48) Monocytes % 10 % (0-10) Platelet Estimate Adequate (ADEQUATE) Sodium Level 137 mmol/L (136-145) Potassium Level 4.4 mmol/L (3.5-5.1) Chloride Level 103 mmol/L (98-107) Carbon Dioxide Level 27 mmol/L (21-32) Anion Gap 7 (6-14) Blood Urea Nitrogen 19 mg/dL (8-26) Creatinine 0.9 mg/dL (0.7-1.3) Estimated GFR (Cockcroft-Gault) 86.1 BUN/Creatinine Ratio 21 (6-20) Glucose Level 104 mg/dL (70-99) Calcium Level 8.2 mg/dL (8.5-10.1) Total Bilirubin 0.8 mg/dL (0.2-1.0) Aspartate Amino Transf (AST/SGOT) 149 U/L (15-37) Alanine Aminotransferase (ALT/SGPT) 214 U/L (16-63) Alkaline Phosphatase 48 U/L (46-116) Total Protein 5.8 g/dL (6.4-8.2) Albumin 2.3 g/dL (3.4-5.0) Albumin/Globulin Ratio 0.7 (1.0-1.7) Medications Active Scripts Medications Dose Route/Sig Max Daily Dose Days Date Category Azithromycin Tablet (Azithromycin) 250 Mg Tablet 250 Mg PO DAILY 4 07/23/21 Rx Impression . 1. Acute hypoxic respiratory failure secondary to COVID-19 viral pneumonia/acute lung injury/early acute respiratory distress syndrome. 2. No significant tobacco history. 3. Abnormal chest x-ray consistent with viral pneumonia. 4. Moderate protein-calorie malnutrition. Albumin level of 2.5. 5. Abnormal liver function test due to COVID-19. Plan . Updated 07/31 Continue Vapotherm No room for decreasing oxygen flow Continue nutritional support Dexamethasone Received tocilizumab and updated 07/30 Continue Vapotherm Patient was lots of questions, I answered them to the best of my ability, wanted to know how long he was going to stay in the hospital. Continue current support with oxygen, received remdesivir, dexamethasone, also received TOO Dow MD Jul 31, 2021 08:46
--- NOTE | 2021-07-31 11:11 | PDOC ---
[facility] PROGRESS NOTE Date of Service DOS: DATE: 07/31/21 TIME: 11:06 Chief Complaint Chief Complaint Acute respiratory failure with hypoxia - Decadron remdesivir therapy. Wean O2 as tolerated. Supportive care otherwise COVID 19 with pneumonia -as above. Transaminitis - likely related to COVID 19 Hyponatremia - likely nutritional, not eating prior to arrival Severe protein calorie malnutrition - due to viral illness History of Present Illness History of Present Illness 07/31/2021: Patient seen and examined in the ICU Discussed with RN He is still on Vapotherm 40L via NC with 96% SpO2. No conversational dyspnea. Chart reviewed 07/30/2021 Patient seen and examined in the ICU Chart reviewed Discussed with RN He is still on Vapotherm 07/29/2021 Patient seen and examined in the ICU Discussed with RN Chart reviewed Mr Jalloh is a 61 year old male with no past medical history who presents with fever, chills, fatigue, and progressive shortness of breath. Started feeling badly on 07/18/2021. He thinks on 07/16/2021 he was exposed to COVID 19 at the ED at [facility] when he took his son there for URI symptoms. Has has loss of appetite and loss of taste and smell since 07/20/2021 overnight. His symptoms progressed over the weekend and failed to improve so he came to the emergency department on 07/23/2021 and was tested positive for COVID-19. Symptoms have persisted despite treatment with Tylenol, ibuprofen he continues to have fevers. He checked his pulse ox and it was dropping into the 80s so presented for emergency treatment. Denies chest pain, lower extremity edema. He is not vaccinated against Covid 19, does not smoke, drink, or use illicit drugs. Lives with his and son at home. WBC 5.9, Hb 15.6, platelets 183, NA 134, K3.8, BUN 13, CR 1.2, glucose 113, calcium 8.4, bilirubin 0.7, AST 53, ALT 34, alk phos 43, albumin 3. EKG normal sinus rhythm rate of [address] segment abnormalities or T wave inversions QTC 439 Chest radiograph worsened bilaterally with interstitial changes since 07/23/2021. Admitted for further care. 07/27/2021: Low-grade fever overnight, T-max 99.8 F. Breathing on 10 L nasal cannula. CRP 69.2, not quite the cutoff to qualify for Actemra. Continue remdesivir, with close monitoring of LFTs (last day should be 07/30). Continue Decadron to complete 10-day course. 07/28/2021: Afebrile. States he had a rough morning, woke up with some coughing spells that causeed O2 desaturation. Was previously breathing on 10-12 L by nasal cannula. He was moved to ICU because felt he would benefit on high flow n paulo cannula. When seen in ICU he states he is already breathing much better. Explained to patient that if this is the case he may be moved back to his original room if his oxygen saturations can be maintained on less than high flow nasal cannula. Continue remdesivir, with monitoring of LFTs. Continue Decadron. Supportive care. Vitals/I&O Vitals/I&O: Vital Signs Date Time Temp Pulse Resp B/P (MAP) Pulse Ox O2 Delivery O2 Flow Rate FiO2 07/31/21 10:13 96 VAPOTHERM 40.0 07/31/21 04:00 62 20 127/77 (94) 07/30/21 20:00 98.4 98.4 I & O 07/30/21 07/30/21 07/31/21 15:00 23:00 07:00 Intake Total 1080 ml 860 ml Output Total 500 ml 400 ml 580 ml Balance 580 ml 460 ml -580 ml Physical Exam Physical Exam: On Vapotherm 40L via NC with 96% SpO2. General: Alert, Oriented X3, Cooperative, mild distress Heart: Regular rate Lungs: Other (No increased work of breathing. No conversational dyspnea.) Abdomen: Normal bowel sounds, Soft, No tenderness, No hepatosplenomegaly, No masses Extremities: No clubbing, No cyanosis, No edema, Normal pulses, No tenderness/swelling Skin: No rashes, No breakdown, No significant lesion Review of Systems Review of Systems: SOA Fatigue Assessment and Plan Assessmemt and Plan Problems Medical Problems: (1) COVID-19 Status: Acute (2) Respiratory failure with hypoxia Status: Acute Acute respiratory failure with hypoxia - Decadron remdesivir therapy. Wean O2 as tolerated. Supportive care otherwise COVID 19 with pneumonia -as above. Transaminitis - likely related to COVID 19 Hyponatremia - likely nutritional, not eating prior to arrival Severe protein calorie malnutrition - due to viral illness Plan: Covid protocol Continue Vapotherm Steroids Remdesivir O2 supportive care Codeine cough syrup ASA Vitamins and minerals Encourage PO intake ICU monitoring Prognosis guarded Appreciate subspecialist and Full Code CC time 30-minute Comment Review of Relevant I have reviewed the following items omari (where applicable) has been applied. Medications: Current Medications Medications (Trade) Dose Ordered Sig/Florecita Route PRN Reason Start Time Stop Time Status Last Admin Dose Admin Aspirin (Aspirin Chewable) 81 mg [id number] PO 07/31/21 08:00 07/31/21 08:34 Justifications for Admission Other Justification REBECCA POWELL III DO Jul 31, 2021 11:11
--- NOTE | 2021-07-31 11:40 | NUR ---
SS following for discharge planning. SS reviewed pt chart and discussed with pt RN. Pt is from home with spouse and is currently on Vapotherm at 100%. COVID19 positive. Pt on IV Decadron. SS will continue to follow for discharge planning.
[2021-07-31 12:00] VITALS: BP 102/56
[2021-07-31 16:00] VITALS: BP 102/49
[2021-07-31 20:00] VITALS: BP 128/67
[2021-08-01] VITALS: BP 105/62
[2021-08-01] MEDS: STERILE WATER for RESP 1,000 ML BAG. INH PRN ×2 (03:40→14:15)
[2021-08-01 04:00] VITALS: BP 100/57
[2021-08-01 04:57] LABS: BASO % 0 % (0-3); EOS # 0.2 x10^3/uL (0.0-0.7); EOS % 2 % (0-3); HEMATOCRIT 40.8 % (39.0-53.0); HEMOGLOBIN 14.3 g/dL (13.0-17.5); LYMPH # 1.1 x10^3/uL (1.0-4.8); LYMPH % 13 % (24-48); MEAN CORPUSCULAR HEMOGLOBIN 32 pg (25-35); MEAN CORPUSCULAR HGB CONC 35 g/dL (31-37); MEAN CORPUSCULAR VOLUME 91 fL (79-100); MONO # 0.5 x10^3/uL (0.0-1.1); MONO % 5 % (0-9); NEUT # 6.8 x10^3/uL (1.8-7.7); NEUT % 80 % (31-73); PLATELET COUNT 412 x10^3/uL (140-400); RED BLOOD COUNT 4.47 x10^6/uL (4.30-5.70); RED CELL DISTRIBUTION WIDTH 13.3 % (11.5-14.5); WHITE BLOOD COUNT 8.6 x10^3/uL (4.0-11.0)
[2021-08-01 05:22] LABS: CALCIUM 7.9 mg/dL (8.5-10.1); GFR 76.2; POTASSIUM 4.4 mmol/L (3.5-5.1)
[2021-08-01 08:00] VITALS: BP 97/59
--- NOTE | 2021-08-01 08:34 | PDOC ---
[facility] PROGRESS NOTE Date of Service DOS: DATE: 08/01/21 TIME: 08:32 Chief Complaint Chief Complaint Acute respiratory failure with hypoxia - Decadron remdesivir therapy. Wean O2 as tolerated. Supportive care otherwise COVID 19 with pneumonia -as above. Transaminitis - likely related to COVID 19 Hyponatremia - likely nutritional, not eating prior to arrival Severe protein calorie malnutrition - due to viral illness History of Present Illness History of Present Illness 08/01/2021: Patient seen and examined in the ICU He is now on Vapotherm 30L via NC with 80% FiO2 and 95% SpO2. Tolerating PO with water at bedside. No conversational dyspnea. Chart reviewed Discussed with RN 07/31/2021: Patient seen and examined in the ICU Discussed with RN He is still on Vapotherm 40L via NC with 96% SpO2. No conversational dyspnea. Chart reviewed 07/30/2021 Patient seen and examined in the ICU Chart reviewed Discussed with RN He is still on Vapotherm 07/29/2021 Patient seen and examined in the ICU Discussed with RN Chart reviewed Mr Jalloh is a 61 year old male with no past medical history who presents with fever, chills, fatigue, and progressive shortness of breath. Started feeling badly on 07/18/2021. He thinks on 07/16/2021 he was exposed to COVID 19 at the ED at [facility] when he took his son there for URI symptoms. Has has loss of appetite and loss of taste and smell since 07/20/2021 overnight. His symptoms progressed over the weekend and failed to improve so he came to the emergency department on 07/23/2021 and was tested positive for COVID-19. Symptoms have persisted despite treatment with Tylenol, ibuprofen he continues to have fevers. He checked his pulse ox and it was dropping into the 80s so presented for emergency treatment. Denies chest pain, lower extremity edema. He is not vaccinated against Covid 19, does not smoke, drink, or use illicit drugs. Lives with his and son at home. WBC 5.9, Hb 15.6, platelets 183, NA 134, K3.8, BUN 13, CR 1.2, glucose 113, calcium 8.4, bilirubin 0.7, AST 53, ALT 34, alk phos 43, albumin 3. EKG normal sinus rhythm rate of [address] segment abnormalities or T wave inversions QTC 439 Chest radiograph worsened bilaterally with interstitial changes since 07/23/2021. Admitted for further care. 07/27/2021: Low-grade fever overnight, T-max 99.8 F. Breathing on 10 L nasal cannula. CRP 69.2, not quite the cutoff to qualify for Actemra. Continue remdesivir, with close monitoring of LFTs (last day should be 07/30). Continue Decadron to complete 10-day course. 07/28/2021: Afebrile. States he had a rough morning, woke up with some coughing spells that causeed O2 desaturation. Was previously breathing on 10-12 L by nasal cannula. He was moved to ICU because felt he would benefit on high flow nasal cannula. When seen in ICU he states he is already breathing much better. Explained to patient that if this is the case he may be moved back to his original room if his oxygen saturations can be maintained on less than high flow nasal cannula. Continue remdesivir, with monitoring of LFTs. Continue Decadron. Supportive care. Vitals/I&O Vitals/I&O: Vital Signs Date Time Temp Pulse Resp B/P (MAP) Pulse Ox O2 Delivery O2 Flow Rate FiO2 08/01/21 08:03 96 VAPOTHERM 30.0 08/01/21 04:00 98.4 58 24 100/57 (71) 98.4 I & O 07/31/21 07/31/21 08/01/21 15:00 23:00 07:00 Intake Total 960 ml 240 ml Output Total 1000 ml 0 ml 350 ml Balance -40 ml 240 ml -350 ml Physical Exam Physical Exam: On Vapotherm 30L via NC with 96% SpO2. General: Alert, Oriented X3, Cooperative, mild distress Heart: Regular rate, Normal S1, Normal S2 Lungs: Clear, Other (No increased work of breathing. No conversational dyspnea.) Abdomen: Normal bowel sounds, Soft, No tenderness, No hepatosplenomegaly, No masses Extremities: No clubbing, No cyanosis, No edema, Normal pulses, No tenderness/swelling Skin: No rashes, No breakdown, No significant lesion Labs Labs: Laboratory Tests Test 08/01/21 04:50 White Blood Count 8.6 x10^3/uL (4.0-11.0) Red Blood Count 4.47 x10^6/uL (4.30-5.70) Hemoglobin 14.3 g/dL (13.0-17.5) Hematocrit 40.8 % (39.0-53.0) Mean Corpuscular Volume 91 fL (79-100) Mean Corpuscular Hemoglobin 32 pg (25-35) Mean Corpuscular Hemoglobin Concent 35 g/dL (31-37) Red Cell Distribution Width 13.3 % (11.5-14.5) Platelet Count 412 x10^3/uL (140-400) Neutrophils (%) (Auto) 80 % (31-73) Lymphocytes (%) (Auto) 13 % (24-48) Monocytes (%) (Auto) 5 % (0-9) Eosinophils (%) (Auto) 2 % (0-3) Basophils (%) (Auto) 0 % (0-3) Neutrophils # (Auto) 6.8 x10^3/uL (1.8-7.7) Lymphocytes # (Auto) 1.1 x10^3/uL (1.0-4.8) Monocytes # (Auto) 0.5 x10^3/uL (0.0-1.1) Eosinophils # (Auto) 0.2 x10^3/uL (0.0-0.7) Basophils # (Auto) 0.0 x10^3/uL (0.0-0.2) Sodium Level 137 mmol/L (136-145) Potassium Level 4.4 mmol/L (3.5-5.1) Chloride Level 103 mmol/L (98-107) Carbon Dioxide Level 27 mmol/L (21-32) Anion Gap 7 (6-14) Blood Urea Nitrogen 21 mg/dL (8-26) Creatinine 1.0 mg/dL (0.7-1.3) Estimated GFR (Cockcroft-Gault) 76.2 Glucose Level 103 mg/dL (70-99) Calcium Level 7.9 mg/dL (8.5-10.1) Review of Systems Review of Systems: SOA Fatigue Assessment and Plan Assessmemt and Plan Problems Medical Problems: (1) COVID-19 Status: Acute (2) Respiratory failure with hypoxia Status: Acute Acute respiratory failure with hypoxia - Decadron remdesivir therapy. Wean O2 as tolerated. Supportive care otherwise COVID 19 with pneumonia -as above. Transaminitis - likely related to COVID 19 Hyponatremia - likely nutritional, not eating prior to arrival Severe protein calorie malnutrition - due to viral illness Plan: Continue Vapotherm Encourage PO intake ICU monitoring Covid protocol Steroids Remdesivir O2 supportive care Codeine cough syrup ASA Vitamins and minerals Prognosis guarded Appreciate subspecialist Full Code CC time 30-minute Comment Review of Relevant I have reviewed the following items omari (where applicable) has been applied. Justifications for Admission Other Justification REBECCA POWELL III DO Aug 01, 2021 08:34
--- NOTE | 2021-08-01 08:40 | PDOC ---
PULMONARY PROGRESS NOTES DATE: 08/01/21 TIME: 08:40 Subjective Patient currently down to 30 L flow, 80% FiO2 Vitals Vital Signs Date Time Temp Pulse Resp B/P (MAP) Pulse Ox O2 Delivery O2 Flow Rate FiO2 08/01/21 08:03 96 VAPOTHERM 30.0 08/01/21 04:00 98.4 58 24 100/57 (71) 98.4 Comments Visual exam done due to COVID-19. No shortness of breath. Lungs: Clear, Other (No increased work of breathing. No conversational dyspnea.) Labs Laboratory Tests Test 08/01/21 04:50 White Blood Count 8.6 x10^3/uL (4.0-11.0) Red Blood Count 4.47 x10^6/uL (4.30-5.70) Hemoglobin 14.3 g/dL (13.0-17.5) Hematocrit 40.8 % (39.0-53.0) Mean Corpuscular Volume 91 fL (79-100) Mean Corpuscular Hemoglobin 32 pg (25-35) Mean Corpuscular Hemoglobin Concent 35 g/dL (31-37) Red Cell Distribution Width 13.3 % (11.5-14.5) Platelet Count 412 x10^3/uL (140-400) Neutrophils (%) (Auto) 80 % (31-73) Lymphocytes (%) (Auto) 13 % (24-48) Monocytes (%) (Auto) 5 % (0-9) Eosinophils (%) (Auto) 2 % (0-3) Basophils (%) (Auto) 0 % (0-3) Neutrophils # (Auto) 6.8 x10^3/uL (1.8-7.7) Lymphocytes # (Auto) 1.1 x10^3/uL (1.0-4.8) Monocytes # (Auto) 0.5 x10^3/uL (0.0-1.1) Eosinophils # (Auto) 0.2 x10^3/uL (0.0-0.7) Basophils # (Auto) 0.0 x10^3/uL (0.0-0.2) Sodium Level 137 mmol/L (136-145) Potassium Level 4.4 mmol/L (3.5-5.1) Chloride Level 103 mmol/L (98-107) Carbon Dioxide Level 27 mmol/L (21-32) Anion Gap 7 (6-14) Blood Urea Nitrogen 21 mg/dL (8-26) Creatinine 1.0 mg/dL (0.7-1.3) Estimated GFR (Cockcroft-Gault) 76.2 Glucose Level 103 mg/dL (70-99) Calcium Level 7.9 mg/dL (8.5-10.1) Laboratory Tests Test 08/01/21 04:50 White Blood Count 8.6 x10^3/uL (4.0-11.0) Red Blood Count 4.47 x10^6/uL (4.30-5.70) Hemoglobin 14.3 g/dL (13.0-17.5) Hematocrit 40.8 % (39.0-53.0) Mean Corpuscular Volume 91 fL (79-100) Mean Corpuscular Hemoglobin 32 pg (25-35) Mean Corpuscular Hemoglobin Concent 35 g/dL (31-37) Red Cell Distribution Width 13.3 % (11.5-14.5) Platelet Count 412 x10^3/uL (140-400) Neutrophils (%) (Auto) 80 % (31-73) Lymphocytes (%) (Auto) 13 % (24-48) Monocytes (%) (Auto) 5 % (0-9) Eosinophils (%) (Auto) 2 % (0-3) Basophils (%) (Auto) 0 % (0-3) Neutrophils # (Auto) 6.8 x10^3/uL (1.8-7.7) Lymphocytes # (Auto) 1.1 x10^3/uL (1.0-4.8) Monocytes # (Auto) 0.5 x10^3/uL (0.0-1.1) Eosinophils # (Auto) 0.2 x10^3/uL (0.0-0.7) Basophils # (Auto) 0.0 x10^3/uL (0.0-0.2) Sodium Level 137 mmol/L (136-145) Potassium Level 4.4 mmol/L (3.5-5.1) Chloride Level 103 mmol/L (98-107) Carbon Dioxide Level 27 mmol/L (21-32) Anion Gap 7 (6-14) Blood Urea Nitrogen 21 mg/dL (8-26) Creatinine 1.0 mg/dL (0.7-1.3) Estimated GFR (Cockcroft-Gault) 76.2 Glucose Level 103 mg/dL (70-99) Calcium Level 7.9 mg/dL (8.5-10.1) Medications Active Scripts Medications Dose Route/Sig Max Daily Dose Days Date Category Azithromycin Tablet (Azithromycin) 250 Mg Tablet 250 Mg PO DAILY 4 07/23/21 Rx Impression . 1. Acute hypoxic respiratory failure secondary to COVID-19 viral pneumonia/acute lung injury/early acute respiratory distress syndrome. 2. No significant tobacco history. 3. Abnormal chest x-ray consistent with viral pneumonia. 4. Moderate protein-calorie malnutrition. Albumin level of 2.5. 5. Abnormal liver function test due to COVID-19. Plan . Updated 08/01 continue Vapotherm Decrease flow as tolerated Nutritional support Dexamethasone Status post tocilizumab Updated 07/31 Continue Vapotherm No room for decreasing oxygen flow Continue nutritional support Dexamethasone Received tocilizumab and remdesivir updated 07/30 Continue Vapotherm Patient was lots of questions, I answered them to the best of my ability, wanted to know how long he was going to stay in the hospital. Continue current support with oxygen, received remdesivir, dexamethasone, also received TOO Dow MD Aug 01, 2021 08:40
[2021-08-01] MEDS: ASPIRIN CHEWABLE 81 MG TABLET. PO SCH (09:17)
[2021-08-01] MEDS: ZINC SULFATE 220 MG CAPSULE. PO SCH (09:18)
[2021-08-01] MEDS: MAGNESIUM OXIDE 400 MG TABLET PO SCH (09:18)
[2021-08-01] MEDS: THIAMINE 100 MG TABLET. PO SCH (09:18)
[2021-08-01] MEDS: ENOXAPARIN 40 MG/0.4 ML SYRINGE. SQ SCH (09:18)
[2021-08-01] MEDS: DEXAMETHASONE SOD PHOS 4 MG/ML VIAL IVP SCH (09:18)
[2021-08-01] MEDS: guaiFENesin DM 200MG/20MG 10 ML SYRUP PO PRN ×2 (09:31→17:45)
[2021-08-01] MEDS: BENZOCAINE/MENTHOL LOZENGE. PO PRN ×2 (10:37→17:45)
[2021-08-01 12:00] VITALS: BP 98/58
--- NOTE | 2021-08-01 15:01 | NUR ---
SS following up with discharge planning. SS reviewed pt chart and discussed with pt RN. Pt is currently on Vapotherm at 30 liters and 70%. COVID19 positive. Pt on IV Decadron. SS will continue to follow for discharge planning.
[2021-08-01 16:00] VITALS: BP 114/76
[2021-08-01 20:00] VITALS: BP 109/57
[2021-08-02] VITALS (7 sets, daily range): BP systolic 99–117; BP diastolic 52–70
[2021-08-02] MEDS: STERILE WATER for RESP 1,000 ML BAG. INH PRN (02:00)
[2021-08-02] MEDS: ASPIRIN CHEWABLE 81 MG TABLET. PO SCH (08:30)
[2021-08-02] MEDS: ZINC SULFATE 220 MG CAPSULE. PO SCH (08:30)
[2021-08-02] MEDS: MAGNESIUM OXIDE 400 MG TABLET PO SCH (08:30)
[2021-08-02] MEDS: THIAMINE 100 MG TABLET. PO SCH (08:30)
[2021-08-02] MEDS: ENOXAPARIN 40 MG/0.4 ML SYRINGE. SQ SCH (08:31)
[2021-08-02] MEDS: DEXAMETHASONE SOD PHOS 4 MG/ML VIAL IVP SCH (08:31)
--- NOTE | 2021-08-02 08:45 | PDOC ---
PULMONARY PROGRESS NOTES DATE: 08/02/21 TIME: 08:45 Subjective Patient's oxygen requirements have decreased, not more short of Vitals Vital Signs Date Time Temp Pulse Resp B/P (MAP) Pulse Ox O2 Delivery O2 Flow Rate FiO2 08/02/21 08:07 94 VAPOTHERM 30.0 08/02/21 06:36 96.4 76 20 117/70 (86) 96.4 Comments Visual exam done due to COVID-19. No shortness of breath. Lungs: Clear, Other (No increased work of breathing. No conversational dyspnea.) Labs Laboratory Tests Test 08/01/21 04:50 White Blood Count 8.6 x10^3/uL (4.0-11.0) Red Blood Count 4.47 x10^6/uL (4.30-5.70) Hemoglobin 14.3 g/dL (13.0-17.5) Hematocrit 40.8 % (39.0-53.0) Mean Corpuscular Volume 91 fL (79-100) Mean Corpuscular Hemoglobin 32 pg (25-35) Mean Corpuscular Hemoglobin Concent 35 g/dL (31-37) Red Cell Distribution Width 13.3 % (11.5-14.5) Platelet Count 412 x10^3/uL (140-400) Neutrophils (%) (Auto) 80 % (31-73) Lymphocytes (%) (Auto) 13 % (24-48) Monocytes (%) (Auto) 5 % (0-9) Eosinophils (%) (Auto) 2 % (0-3) Basophils (%) (Auto) 0 % (0-3) Neutrophils # (Auto) 6.8 x10^3/uL (1.8-7.7) Lymphocytes # (Auto) 1.1 x10^3/uL (1.0-4.8) Monocytes # (Auto) 0.5 x10^3/uL (0.0-1.1) Eosinophils # (Auto) 0.2 x10^3/uL (0.0-0.7) Basophils # (Auto) 0.0 x10^3/uL (0.0-0.2) Sodium Level 137 mmol/L (136-145) Potassium Level 4.4 mmol/L (3.5-5.1) Chloride Level 103 mmol/L (98-107) Carbon Dioxide Level 27 mmol/L (21-32) Anion Gap 7 (6-14) Blood Urea Nitrogen 21 mg/dL (8-26) Creatinine 1.0 mg/dL (0.7-1.3) Estimated GFR (Cockcroft-Gault) 76.2 Glucose Level 103 mg/dL (70-99) Calcium Level 7.9 mg/dL (8.5-10.1) Medications Active Scripts Medications Dose Route/Sig Max Daily Dose Days Date Category Azithromycin Tablet (Azithromycin) 250 Mg Tablet 250 Mg PO DAILY 4 07/23/21 Rx Impression . 1. Acute hypoxic respiratory failure secondary to COVID-19 viral pneumonia/acute lung injury/early acute respiratory distress syndrome. Status post tocilizumab, and remdesivir 2. No significant tobacco history. 3. Abnormal chest x-ray consistent with viral pneumonia. 4. Moderate protein-calorie malnutrition. Albumin level of 2.5. 5. Abnormal liver function test due to COVID-19. Plan . Updated 08/02 Continue to titrate FiO2 down Nutritional support Dexamethasone DVT GI prophylaxis updated 08/01 continue Vapotherm Decrease flow as tolerated Nutritional support Dexamethasone Status post tocilizumab Updated 07/31 Continue Vapotherm No room for decreasing oxygen flow Continue nutritional support Dexamethasone Received tocilizumab and remdesivir updated 07/30 Continue Vapotherm Patient was lots of questions, I answered them to the best of my ability, wanted to know how long he was going to stay in the hospital. Continue current support with oxygen, received remdesivir, dexamethasone, also received TOO Dow MD Aug 02, 2021 08:45
[2021-08-02] MEDS: BENZOCAINE/MENTHOL LOZENGE. PO PRN ×2 (10:24→15:57)
--- NOTE | 2021-08-02 10:51 | PDOC ---
[employer] PROGRESS NOTE Date of Service DOS: DATE: 08/02/21 TIME: 10:46 Chief Complaint Chief Complaint Acute respiratory failure with hypoxia - Decadron remdesivir therapy. Wean O2 as tolerated. Supportive care otherwise COVID 19 with pneumonia -as above. Transaminitis - likely related to COVID 19 Hyponatremia - likely nutritional, not eating prior to arrival Severe protein calorie malnutrition - due to viral illness History of Present Illness History of Present Illness 08/02/2021: Patient seen and examined in the medical floor Patient was transferred to the medical floor this morning. He is now on Vapotherm 30L via NC with 70% FiO2 and SpO2 in the 90s. Patient is awake, alert, talkative, and NAD Patient expresses that he would like to go home soon. Patient works for [employer] and would be doing light work once discharged from the hospital. Tolerating PO with water at bedside. No conversational dyspnea. Chart reviewed Discussed with RN 08/01/2021: Patient seen and examined in the ICU He is now on Vapotherm 30L via NC with 80% FiO2 and 95% SpO2. Tolerating PO with water at bedside. No conversational dyspnea. Chart reviewed Discussed with RN 07/31/2021: Patient seen and examined in the ICU Discussed with RN He is still on Vapotherm 40L via NC with 96% SpO2. No conversational dyspnea. Chart reviewed 07/30/2021 Patient seen and examined in the ICU Chart reviewed Discussed with RN He is still on Vapotherm 07/29/2021 Patient seen and examined in the ICU Discussed with RN Chart reviewed Mr Jalloh is a 61 year old male with no past medical history who presents with fever, chills, fatigue, and progressive shortness of breath. Started feeling badly on 07/18/2021. He thinks on 07/16/2021 he was exposed to COVID 19 at the ED at [facility] when he took his son there for URI sympto msArabella Has has loss of appetite and loss of taste and smell since 07/20/2021 overnight. His symptoms progressed over the weekend and failed to improve so he came to the emergency department on 07/23/2021 and was tested positive for COVID-19. Symptoms have persisted despite treatment with Tylenol, ibuprofen he continues to have fevers. He checked his pulse ox and it was dropping into the 80s so presented for emergency treatment. Denies chest pain, lower extremity edema. He is not vaccinated against Covid 19, does not smoke, drink, or use illicit drugs. Lives with his and son at home. WBC 5.9, Hb 15.6, platelets 183, NA 134, K3.8, BUN 13, CR 1.2, glucose 113, calcium 8.4, bilirubin 0.7, AST 53, ALT 34, alk phos 43, albumin 3. EKG normal sinus rhythm rate of [address] segment abnormalities or T wave inversions QTC 439 Chest radiograph worsened bilaterally with interstitial changes since 07/23/2021. Admitted for further care. 07/27/2021: Low-grade fever overnight, T-max 99.8 F. Breathing on 10 L nasal cannula. CRP 69.2, not quite the cutoff to qualify for Actemra. Continue remdesivir, with close monitoring of LFTs (last day should be 07/30). Continue Decadron to complete 10-day course. 07/28/2021: Afebrile. States he had a rough morning, woke up with some coughing spells that causeed O2 desaturation. Was previously breathing on 10-12 L by nasal cannula. He was moved to ICU because felt he would benefit on high flow nasal cannula. When seen in ICU he states he is already breathing much better. Explained to patient that if this is the case he may be moved back to his original room if his oxygen saturations can be maintained on less than high flow nasal cannula. Continue remdesivir, with monitoring of LFTs. Continue Decadron. Supportive care. Vitals/I&O Vitals/I&O: Vital Signs Date Time Temp Pulse Resp B/P (MAP) Pulse Ox O2 Delivery O2 Flow Rate FiO2 08/02/21 09:56 94 VAPOTHERM 30.0 08/02/21 06:36 96.4 76 20 117/70 (86) 96.4 I & O 08/01/21 08/01/21 08/02/21 15:00 23:00 07:00 Intake Total 1240 ml Output Total 950 ml 1100 ml 850 ml Balance -950 ml -1100 ml 390 ml Physical Exam Physical Exam: On Vapotherm 30L via NC with 96% SpO2. General: Alert, Oriented X3, Cooperative, mild distress Heart: Regular rate, Normal S1, Normal S2 Lungs: Clear, Other (No increased work of breathing. No conversational dyspnea .) Abdomen: Normal bowel sounds, Soft, No tenderness, No hepatosplenomegaly, No masses Extremities: No clubbing, No cyanosis, No edema, Normal pulses, No tenderness/swelling Skin: No rashes, No breakdown, No significant lesion Assessment and Plan Assessmemt and Plan Problems Medical Problems: (1) COVID-19 Status: Acute (2) Respiratory failure with hypoxia Status: Acute Acute respiratory failure with hypoxia - Decadron remdesivir therapy. Wean O2 as tolerated. Supportive care otherwise COVID 19 with pneumonia -as above. Transaminitis - likely related to COVID 19 Hyponatremia - likely nutritional, not eating prior to arrival Severe protein calorie malnutrition - due to viral illness Plan: Continue Vapotherm Titrate down vapotherm O2 flow and switch over to NC when tolerated Encourage PO intake Covid protocol Steroids Remdesivir completed- D/C'ed O2 supportive care Codeine cough syrup ASA Vitamins and minerals Appreciate subspecialist Full Code CC time 30-minute Comment Review of Relevant I have reviewed the following items omari (where applicable) has been applied. Justifications for Admission Other Justification REBECCA POWELL III DO Aug 02, 2021 10:51
[2021-08-02] MEDS ORDERED: STERILE WATER for RESP 2,000 ML BAG. INH PRN (14:00)
[2021-08-02] MEDS: guaiFENesin DM 200MG/20MG 10 ML SYRUP PO PRN (18:54)
[2021-08-03] MEDS: guaiFENesin DM 200MG/20MG 10 ML SYRUP PO PRN ×2 (02:56→10:04)
[2021-08-03 02:58] VITALS: BP 113/61
[2021-08-03 04:08] LABS: BASO % 0 % (0-3); EOS # 0.1 x10^3/uL (0.0-0.7); EOS % 1 % (0-3); HEMATOCRIT 39.1 % (39.0-53.0); HEMOGLOBIN 13.9 g/dL (13.0-17.5); LYMPH # 1.1 x10^3/uL (1.0-4.8); LYMPH % 9 % (24-48); MEAN CORPUSCULAR HEMOGLOBIN 33 pg (25-35); MEAN CORPUSCULAR HGB CONC 36 g/dL (31-37); MEAN CORPUSCULAR VOLUME 91 fL (79-100); MONO # 0.8 x10^3/uL (0.0-1.1); MONO % 7 % (0-9); NEUT # 9.3 x10^3/uL (1.8-7.7); NEUT % 82 % (31-73); PLATELET COUNT 405 x10^3/uL (140-400); RED BLOOD COUNT 4.28 x10^6/uL (4.30-5.70); RED CELL DISTRIBUTION WIDTH 13.1 % (11.5-14.5); WHITE BLOOD COUNT 11.4 x10^3/uL (4.0-11.0)
[2021-08-03 04:19] LABS: CALCIUM 7.9 mg/dL (8.5-10.1); GFR 76.2
[2021-08-03 07:00] VITALS: BP 106/66
[2021-08-03] MEDS: ASPIRIN CHEWABLE 81 MG TABLET. PO SCH (07:39)
[2021-08-03] MEDS: BENZOCAINE/MENTHOL LOZENGE. PO PRN ×2 (07:39→21:10)
[2021-08-03] MEDS: MAGNESIUM OXIDE 400 MG TABLET PO SCH (07:39)
[2021-08-03] MEDS: THIAMINE 100 MG TABLET. PO SCH (07:40)
[2021-08-03] MEDS: ZINC SULFATE 220 MG CAPSULE. PO SCH (07:40)
[2021-08-03] MEDS: DEXAMETHASONE SOD PHOS 4 MG/ML VIAL IVP SCH (07:40)
[2021-08-03] MEDS: ENOXAPARIN 40 MG/0.4 ML SYRINGE. SQ SCH (07:41)
--- NOTE | 2021-08-03 08:21 | PDOC ---
PULMONARY PROGRESS NOTES DATE: 08/03/21 TIME: 08:21 Subjective Patient frustrated, not improving as fast as he would like He has multiple family challenges at home, that need to be addressed. 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 Vitals Vital Signs Date Time Temp Pulse Resp B/P (MAP) Pulse Ox O2 Delivery O2 Flow Rate FiO2 08/03/21 07:55 92 VAPOTHERM 25.0 08/03/21 02:58 97.4 85 20 113/61 (78) 97.4 Comments Visual exam done due to COVID-19. No shortness of breath. Lungs: Clear, Other (No increased work of breathing. No conversational dyspn ea.) Labs Laboratory Tests Test 08/03/21 04:00 White Blood Count 11.4 x10^3/uL (4.0-11.0) Red Blood Count 4.28 x10^6/uL (4.30-5.70) Hemoglobin 13.9 g/dL (13.0-17.5) Hematocrit 39.1 % (39.0-53.0) Mean Corpuscular Volume 91 fL (79-100) Mean Corpuscular Hemoglobin 33 pg (25-35) Mean Corpuscular Hemoglobin Concent 36 g/dL (31-37) Red Cell Distribution Width 13.1 % (11.5-14.5) Platelet Count 405 x10^3/uL (140-400) Neutrophils (%) (Auto) 82 % (31-73) Lymphocytes (%) (Auto) 9 % (24-48) Monocytes (%) (Auto) 7 % (0-9) Eosinophils (%) (Auto) 1 % (0-3) Basophils (%) (Auto) 0 % (0-3) Neutrophils # (Auto) 9.3 x10^3/uL (1.8-7.7) Lymphocytes # (Auto) 1.1 x10^3/uL (1.0-4.8) Monocytes # (Auto) 0.8 x10^3/uL (0.0-1.1) Eosinophils # (Auto) 0.1 x10^3/uL (0.0-0.7) Basophils # (Auto) 0.0 x10^3/uL (0.0-0.2) Sodium Level 137 mmol/L (136-145) Potassium Level 4.0 mmol/L (3.5-5.1) Chloride Level 104 mmol/L (98-107) Carbon Dioxide Level 24 mmol/L (21-32) Anion Gap 9 (6-14) Blood Urea Nitrogen 26 mg/dL (8-26) Creatinine 1.0 mg/dL (0.7-1.3) Estimated GFR (Cockcroft-Gault) 76.2 Glucose Level 117 mg/dL (70-99) Calcium Level 7.9 mg/dL (8.5-10.1) Laboratory Tests Test 08/03/21 04:00 White Blood Count 11.4 x10^3/uL (4.0-11.0) Red Blood Count 4.28 x10^6/uL (4.30-5.70) Hemoglobin 13.9 g/dL (13.0-17.5) Hematocrit 39.1 % (39.0-53.0) Mean Corpuscular Volume 91 fL (79-100) Mean Corpuscular Hemoglobin 33 pg (25-35) Mean Corpuscular Hemoglobin Concent 36 g/dL (31-37) Red Cell Distribution Width 13.1 % (11.5-14.5) Platelet Count 405 x10^3/uL (140-400) Neutrophils (%) (Auto) 82 % (31-73) Lymphocytes (%) (Auto) 9 % (24-48) Monocytes (%) (Auto) 7 % (0-9) Eosinophils (%) (Auto) 1 % (0-3) Basophils (%) (Auto) 0 % (0-3) Neutrophils # (Auto) 9.3 x10^3/uL (1.8-7.7) Lymphocytes # (Auto) 1.1 x10^3/uL (1.0-4.8) Monocytes # (Auto) 0.8 x10^3/uL (0.0-1.1) Eosinophils # (Auto) 0.1 x10^3/uL (0.0-0.7) Basophils # (Auto) 0.0 x10^3/uL (0.0-0.2) Sodium Level 137 mmol/L (136-145) Potassium Level 4.0 mmol/L (3.5-5.1) Chloride Level 104 mmol/L (98-107) Carbon Dioxide Level 24 mmol/L (21-32) Anion Gap 9 (6-14) Blood Urea Nitrogen 26 mg/dL (8-26) Creatinine 1.0 mg/dL (0.7-1.3) Estimated GFR (Cockcroft-Gault) 76.2 Glucose Level 117 mg/dL (70-99) Calcium Level 7.9 mg/dL (8.5-10.1) Medications Active Scripts Medications Dose Route/Sig Max Daily Dose Days Date Category Azithromycin Tablet (Azithromycin) 250 Mg Tablet 250 Mg PO DAILY 4 07/23/21 Rx Impression . 1. Acute hypoxic respiratory failure secondary to COVID-19 viral pneumonia/acute lung injury/early acute respiratory distress syndrome. Status post tocilizumab, and remdesivir 2. No significant tobacco history. 3. Abnormal chest x-ray consistent with viral pneumonia. 4. Moderate protein-calorie malnutrition. Albumin level of 2.5. 5. Abnormal liver function test due to COVID-19. Plan . 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 If I was seeing him in the emergency department, I would have discharged him home with Zithromax, and no steroids updated 08/02 Continue to titrate FiO2 down Nutritional support Dexamethasone DVT GI prophylaxis TOO MALDONADO MD Aug 03, 2021 08:21
--- NOTE | 2021-08-03 10:41 | NUR ---
SS following up with discharge planning. SS reviewed pt chart and discussed with pt RN. Pt is currently on Vapotherm at 25 liters and 70%. COVID19 positive. Pt on IV Decadron. SS will continue to follow for discharge planning.
[2021-08-03 11:00] VITALS: BP 110/55
--- NOTE | 2021-08-03 12:01 | PDOC ---
[employer] PROGRESS NOTE Date of Service DOS: DATE: 08/03/21 TIME: 11:58 Chief Complaint Chief Complaint Acute respiratory failure with hypoxia - Decadron remdesivir therapy. Wean O2 as tolerated. Supportive care otherwise COVID 19 with pneumonia -as above. Transaminitis - likely related to COVID 19, improved Hyponatremia - likely nutritional, not eating prior to arrival Severe protein calorie malnutrition - due to viral illness History of Present Illness History of Present Illness 08/03 Patient evaluated and examined at bedside. He was up in the chair still on Vapotherm. Reports that he was feeling significantly better than yesterday says he got up from the chair on his own without feeling short of breath. Requested to bedside nurse to aggressively wean oxygen. A lot of social factors at home giving patient anxiety when he cannot be home to assist with them. Informed him we did start aggressively weaning oxygen. If Big improvements made possible discharge early next week. 08/02/2021: Patient seen and examined in the medical floor Patient was transferred to the medical floor this morning. He is now on Vapotherm 30L via NC with 70% FiO2 and SpO2 in the 90s. Patient is awake, alert, talkative, and NAD Patient expresses that he would like to go home soon. Patient works for [employer] and would be doing light work once discharged from the hospital. Tolerating PO with water at bedside. No conversational dyspnea. Chart reviewed Discussed with RN 08/01/2021: Patient seen and examined in the ICU He is now on Vapotherm 30L via NC with 80% FiO2 and 95% SpO2. Tolerating PO with water at bedside. No conversational dyspnea. Chart reviewed Discussed with RN 07/31/2021: Patient seen and examined in the ICU Discussed with RN He is still on Vapotherm 40L via NC with 96% SpO2. No conversational dyspnea. Chart reviewed 07/30/2021 Patient seen and examined in the ICU Chart reviewed Discussed with RN He is still on Vapotherm 07/29/2021 Patient seen and examined in the ICU Discussed with RN Chart reviewed Mr Jalloh is a 61 year old male with no past medical history who presents with fever, chills, fatigue, and progressive shortness of breath. Started feeling badly on 07/18/2021. He thinks on 07/16/2021 he was exposed to COVID 19 at the ED at [facility] when he took his son there for JACINTA barrera. Has has loss of appetite and loss of taste and smell since 07/20/2021 overnight. His symptoms progressed over the weekend and failed to improve so he came to the emergency department on 07/23/2021 and was tested positive for COVID-19. Symptoms have persisted despite treatment with Tylenol, ibuprofen he continues to have fevers. He checked his pulse ox and it was dropping into the 80s so presented for emergency treatment. Denies chest pain, lower extremity edema. He is not vaccinated against Covid 19, does not smoke, drink, or use illicit drugs. Lives with his and son at home. WBC 5.9, Hb 15.6, platelets 183, NA 134, K3.8, BUN 13, CR 1.2, glucose 113, calcium 8.4, bilirubin 0.7, AST 53, ALT 34, alk phos 43, albumin 3. EKG normal sinus rhythm rate of [address] segment abnormalities or T wave inversions QTC 439 Chest radiograph worsened bilaterally with interstitial changes since 07/23/2021. Admitted for further care. 07/27/2021: Low-grade fever overnight, T-max 99.8 F. Breathing on 10 L nasal cannula. CRP 69.2, not quite the cutoff to qualify for Actemra. Continue remdesivir, with close monitoring of LFTs (last day should be 07/30). Continue Decadron to complete 10-day course. 07/28/2021: Afebrile. States he had a rough morning, woke up with some coughing spells that causeed O2 desaturation. Was previously breathing on 10-12 L by nasal cannula. He was moved to ICU because felt he would benefit on high flow nasal cannula. When seen in ICU he states he is already breathing much better. Explained to patient that if this is the case he may be moved back to his original room if his oxygen saturations can be maintained on less than high flow nasal cannula. Continue remdesivir, with monitoring of LFTs. Continue Decadron. Supportive care. Vitals/I&O Vitals/I&O: Vital Signs Date Time Temp Pulse Resp B/P (MAP) Pulse Ox O2 Delivery O2 Flow Rate FiO2 08/03/21 11:00 97.7 95 20 110/55 (73) 92 vaportherm 25.0 97.7 I & O 08/02/21 08/02/21 08/03/21 15:00 23:00 07:00 Intake Total 800 ml Output Total 400 ml 975 ml 600 ml Balance -400 ml -975 ml 200 ml Physical Exam Physical Exam: On Vapotherm 30L via NC with 96% SpO2. General: Alert, Oriented X3, Cooperative, mild distress Heart: Regular rate, Normal S1, Normal S2 Lungs: Clear, Other (No increased work of breathing. No conversational dyspnea.) Abdomen: Normal bowel sounds, Soft, No tenderness, No hepatosplenomegaly, No masses Extremities: No edema, Normal pulses, No tenderness/swelling Skin: No rashes, No breakdown, No significant lesion Labs Labs: Laboratory Tests Test 08/03/21 04:00 White Blood Count 11.4 x10^3/uL (4.0-11.0) Red Blood Count 4.28 x10^6/uL (4.30-5.70) Hemoglobin 13.9 g/dL (13.0-17.5) Hematocrit 39.1 % (39.0-53.0) Mean Corpuscular Volume 91 fL (79-100) Mean Corpuscular Hemoglobin 33 pg (25-35) Mean Corpuscular Hemoglobin Concent 36 g/dL (31-37) Red Cell Distribution Width 13.1 % (11.5-14.5) Platelet Count 405 x10^3/uL (140-400) Neutrophils (%) (Auto) 82 % (31-73) Lymphocytes (%) (Auto) 9 % (24-48) Monocytes (%) (Auto) 7 % (0-9) Eosinophils (%) (Auto) 1 % (0-3) Basophils (%) (Auto) 0 % (0-3) Neutrophils # (Auto) 9.3 x10^3/uL (1.8-7.7) Lymphocytes # (Auto) 1.1 x10^3/uL (1.0-4.8) Monocytes # (Auto) 0.8 x10^3/uL (0.0-1.1) Eosinophils # (Auto) 0.1 x10^3/uL (0.0-0.7) Basophils # (Auto) 0.0 x10^3/uL (0.0-0.2) Sodium Level 137 mmol/L (136-145) Potassium Level 4.0 mmol/L (3.5-5.1) Chloride Level 104 mmol/L (98-107) Carbon Dioxide Level 24 mmol/L (21-32) Anion Gap 9 (6-14) Blood Urea Nitrogen 26 mg/dL (8-26) Creatinine 1.0 mg/dL (0.7-1.3) Estimated GFR (Cockcroft-Gault) 76.2 Glucose Level 117 mg/dL (70-99) Calcium Level 7.9 mg/dL (8.5-10.1) Assessment and Plan Assessmemt and Plan Problems Medical Problems: (1) COVID-19 Status: Acute (2) Respiratory failure with hypoxia Status: Acute Comment Review of Relevant I have reviewed the following items omari (where applicable) has been applied. Justifications for Admission Other Justification JERRY MORRISON MD Aug 03, 2021 12:01
[2021-08-03 15:00] VITALS: BP 112/62
[2021-08-03 19:45] VITALS: BP 118/67
[2021-08-03 22:30] VITALS: BP 106/55
[2021-08-04 03:00] VITALS: BP 101/59
[2021-08-04 05:01] LABS: BASO % 0 % (0-3); EOS # 0.1 x10^3/uL (0.0-0.7); EOS % 1 % (0-3); HEMATOCRIT 38.6 % (39.0-53.0); HEMOGLOBIN 13.7 g/dL (13.0-17.5); LYMPH # 1.4 x10^3/uL (1.0-4.8); LYMPH % 11 % (24-48); MEAN CORPUSCULAR HEMOGLOBIN 33 pg (25-35); MEAN CORPUSCULAR HGB CONC 36 g/dL (31-37); MEAN CORPUSCULAR VOLUME 92 fL (79-100); MONO # 1.1 x10^3/uL (0.0-1.1); MONO % 9 % (0-9); NEUT # 9.9 x10^3/uL (1.8-7.7); NEUT % 79 % (31-73); PLATELET COUNT 408 x10^3/uL (140-400); RED BLOOD COUNT 4.21 x10^6/uL (4.30-5.70); RED CELL DISTRIBUTION WIDTH 13.3 % (11.5-14.5); WHITE BLOOD COUNT 12.6 x10^3/uL (4.0-11.0)
[2021-08-04 05:22] LABS: CALCIUM 7.8 mg/dL (8.5-10.1); CREATININE 0.9 mg/dL (0.7-1.3); GFR 86.1; POTASSIUM 4.1 mmol/L (3.5-5.1)
[2021-08-04 07:55] VITALS: BP 121/59
[2021-08-04] MEDS: MAGNESIUM OXIDE 400 MG TABLET PO SCH (10:21)
[2021-08-04] MEDS: ASPIRIN CHEWABLE 81 MG TABLET. PO SCH (10:21)
[2021-08-04] MEDS: THIAMINE 100 MG TABLET. PO SCH (10:21)
[2021-08-04] MEDS: DEXAMETHASONE SOD PHOS 4 MG/ML VIAL IVP SCH (10:22)
[2021-08-04] MEDS: ENOXAPARIN 40 MG/0.4 ML SYRINGE. SQ SCH (10:22)
[2021-08-04] MEDS: ZINC SULFATE 220 MG CAPSULE. PO SCH (10:22)
[2021-08-04 11:35] VITALS: BP 112/60
--- NOTE | 2021-08-04 12:03 | PDOC ---
[employer] PROGRESS NOTE Date of Service DOS: DATE: 08/04/21 TIME: 12:01 Chief Complaint Chief Complaint Acute respiratory failure with hypoxia - Decadron remdesivir therapy. Wean O2 as tolerated. Supportive care otherwise COVID 19 with pneumonia -as above. Transaminitis - likely related to COVID 19, improved Hyponatremia - likely nutritional, not eating prior to arrival Severe protein calorie malnutrition - due to viral illness History of Present Illness History of Present Illness 08/04 Patient evaluated and examined at bedside. He was up in the chair on 8 L nasal cannula tolerating well. Notably weaned oxygen yesterday. We will continue to wean today. Actually plan for 6-minute walk in the morning and he may be able to discharge tomorrow if continued improvement. 08/03 Patient evaluated and examined at bedside. He was up in the chair still on Vapotherm. Reports that he was feeling significantly better than yesterday says he got up from the chair on his own without feeling short of breath. Requested to bedside nurse to aggressively wean oxygen. A lot of social factors at home giving patient anxiety when he cannot be home to assist with them. Informed him we did start aggressively weaning oxygen. If Big improvements made possible discharge early next week. 08/02/2021: Patient seen and examined in the medical floor Patient was transferred to the medical floor this morning. He is now on Vapotherm 30L via NC with 70% FiO2 and SpO2 in the 90s. Patient is awake, alert, talkative, and NAD Patient expresses that he would like to go home soon. Patient works for [employer] and would be doing light work once discharged from the hospital. Tolerating PO with water at bedside. No conversational dyspnea. Chart reviewed Discussed with RN 08/01/2021: Patient seen and examined in the ICU He is now on Vapotherm 30L via NC with 80% FiO2 and 95% SpO2. Tolerating PO with water at bedside. No conversational dyspnea. Chart reviewed Discussed with RN 07/31/2021: Patient seen and examined in the ICU Discussed with RN He is still on Vapotherm 40L via NC with 96% SpO2. No conversational dyspnea. Chart reviewed 07/30/2021 Patient seen and examined in the ICU Chart reviewed Discussed with RN He is still on Vapotherm 07/29/2021 Patient seen and examined in the ICU Discussed with RN Chart reviewed Mr Jalloh is a 61 year old male with no past medical history who presents with fever, chills, fatigue, and progressive shortness of breath. Started feeling badly on 07/18/2021. He thinks on 07/16/2021 he was exposed to COVID 19 at the ED at [facility] when he took his son there for URI symptoms. Has has loss of appetite and loss of taste and smell since 07/20/2021 overnight. His symptoms progressed over the weekend and failed to improve so he came to the emergency department on 07/23/2021 and was tested positive for COVID-19. Symptoms have persisted despite treatment with Tylenol, ibuprofen he continues to have fevers. He checked his pulse ox and it was dropping into the 80s so presented for emergency treatment. Denies chest pain, lower extremity edema. He is not vaccinated against Covid 19, does not smoke, drink, or use illicit drugs. Lives with his and son at home. WBC 5.9, Hb 15.6, platelets 183, NA 134, K3.8, BUN 13, CR 1.2, glucose 113, calcium 8.4, bilirubin 0.7, AST 53, ALT 34, alk phos 43, albumin 3. EKG normal sinus rhythm rate of [address] segment abnormalities or T wave inversions QTC 439 Chest radiograph worsened bilaterally with interstitial changes since 07/23/2021. Admitted for further care. 07/27/2021: Low-grade fever overnight, T-max 99.8 F. Breathing on 10 L nasal cannula. CRP 69.2, not quite the cutoff to qualify for Actemra. Continue remdesivir, with close monitoring of LFTs (last day should be 07/30). Continue Decadron to complete 10-day course. 07/28/2021: Afebrile. States he had a rough morning, woke up with some coughing spells that causeed O2 desaturation. Was previously breathing on 10-12 L by nasal cannula. He was moved to ICU because felt he would benefit on high flow nasal cannula. When seen in ICU he states he is already breathing much better. Explained to patient that if this is the case he may be moved back to his original room if his oxygen saturations can be maintained on less than high flow nasal cannula. Continue remdesivir, with monitoring of LFTs. Continue Decadron. Supportive care. Vitals/I&O Vitals/I&O: Vital Signs Date Time Temp Pulse Resp B/P (MAP) Pulse Ox O2 Delivery O2 Flow Rate FiO2 08/04/21 11:35 97.6 85 18 112/60 (77) 94 Nasal Cannula 10.0 97.6 I & O 08/03/21 08/03/21 08/04/21 15:00 23:00 07:00 Output Total 1100 ml 900 ml 500 ml Balance -1100 ml -900 ml -500 ml Physical Exam Physical Exam: On Vapotherm 30L via NC with 96% SpO2. General: Alert, Oriented X3, Cooperative, mild distress Heart: Regular rate, Normal S1, Normal S2 Lungs: Clear, Other (No increased work of breathing. No conversational dyspnea.) Abdomen: Normal bowel sounds, Soft, No tenderness, No hepatosplenomegaly, No masses Extremities: No edema, Normal pulses, No tenderness/swelling Skin: No rashes, No breakdown, No significant lesion Labs Labs: Laboratory Tests Test 08/04/21 04:30 White Blood Count 12.6 x10^3/uL (4.0-11.0) Red Blood Count 4.21 x10^6/uL (4.30-5.70) Hemoglobin 13.7 g/dL (13.0-17.5) Hematocrit 38.6 % (39.0-53.0) Mean Corpuscular Volume 92 fL (79-100) Mean Corpuscular Hemoglobin 33 pg (25-35) Mean Corpuscular Hemoglobin Concent 36 g/dL (31-37) Red Cell Distribution Width 13.3 % (11.5-14.5) Platelet Count 408 x10^3/uL (140-400) Neutrophils (%) (Auto) 79 % (31-73) Lymphocytes (%) (Auto) 11 % (24-48) Monocytes (%) (Auto) 9 % (0-9) Eosinophils (%) (Auto) 1 % (0-3) Basophils (%) (Auto) 0 % (0-3) Neutrophils # (Auto) 9.9 x10^3/uL (1.8-7.7) Lymphocytes # (Auto) 1.4 x10^3/uL (1.0-4.8) Monocytes # (Auto) 1.1 x10^3/uL (0.0-1.1) Eosinophils # (Auto) 0.1 x10^3/uL (0.0-0.7) Basophils # (Auto) 0.0 x10^3/uL (0.0-0.2) Sodium Level 138 mmol/L (136-145) Potassium Level 4.1 mmol/L (3.5-5.1) Chloride Level 105 mmol/L (98-107) Carbon Dioxide Level 26 mmol/L (21-32) Anion Gap 7 (6-14) Blood Urea Nitrogen 24 mg/dL (8-26) Creatinine 0.9 mg/dL (0.7-1.3) Estimated GFR (Cockcroft-Gault) 86.1 Glucose Level 104 mg/dL (70-99) Calcium Level 7.8 mg/dL (8.5-10.1) Assessment and Plan Assessmemt and Plan Problems Medical Problems: (1) COVID-19 Status: Acute (2) Respiratory failure with hypoxia Status: Acute Comment Review of Relevant I have reviewed the following items omari (where applicable) has been applied. Justifications for Admission Other Justification JERRY MORRISON MD Aug 04, 2021 12:03
[2021-08-04 14:34] VITALS: BP 112/58
[2021-08-04 20:20] VITALS: BP 118/65
[2021-08-04] MEDS: BENZOCAINE/MENTHOL LOZENGE. PO PRN (22:08)
[2021-08-04 22:35] VITALS: BP 133/68
[2021-08-05 03:40] VITALS: BP 121/59
[2021-08-05 05:16] LABS: BASO % 0 % (0-3); EOS % 0 % (0-3); HEMATOCRIT 39.4 % (39.0-53.0); LYMPH # 1.4 x10^3/uL (1.0-4.8); LYMPH % 9 % (24-48); MEAN CORPUSCULAR HEMOGLOBIN 33 pg (25-35); MEAN CORPUSCULAR HGB CONC 36 g/dL (31-37); MEAN CORPUSCULAR VOLUME 92 fL (79-100); MONO # 1.3 x10^3/uL (0.0-1.1); MONO % 8 % (0-9); NEUT # 13.2 x10^3/uL (1.8-7.7); NEUT % 83 % (31-73); PLATELET COUNT 376 x10^3/uL (140-400); RED BLOOD COUNT 4.28 x10^6/uL (4.30-5.70); RED CELL DISTRIBUTION WIDTH 13.3 % (11.5-14.5)
[2021-08-05 05:55] LABS: CALCIUM 8.3 mg/dL (8.5-10.1); CREATININE 0.9 mg/dL (0.7-1.3); GFR 86.1; POTASSIUM 4.1 mmol/L (3.5-5.1)
[2021-08-05 07:55] VITALS: BP 122/65
[2021-08-05] MEDS: THIAMINE 100 MG TABLET. PO SCH (08:00)
[2021-08-05] MEDS: ZINC SULFATE 220 MG CAPSULE. PO SCH (08:00)
[2021-08-05] MEDS: guaiFENesin DM 200MG/20MG 10 ML SYRUP PO PRN (08:00)
[2021-08-05] MEDS: ASPIRIN CHEWABLE 81 MG TABLET. PO SCH (08:00)
[2021-08-05] MEDS: MAGNESIUM OXIDE 400 MG TABLET PO SCH (08:00)
[2021-08-05] MEDS: ENOXAPARIN 40 MG/0.4 ML SYRINGE. SQ SCH (08:01)
[2021-08-05] MEDS ORDERED: ASPI-630 PO (10:07)
--- NOTE | 2021-08-05 10:11 | PDOC3 ---
[facility]-Discharge Summary Date of Admission: Date of Admission: Jul 26, 2021 Date of Discharge: Date of Discharge: Aug 05, 2021 Admission Diagnosis: Problems: (1) Respiratory failure with hypoxia (2) COVID-19 Discharge Diagnosis: Discharge Diagnosis: Same Hospital Course: Hospital Course: Chief Complaint Acute respiratory failure with hypoxia - Decadron remdesivir therapy. Wean O2 as tolerated. Supportive care otherwise COVID 19 with pneumonia -as above. Transaminitis - likely related to COVID 19, improved Hyponatremia - likely nutritional, not eating prior to arrival Severe protein calorie malnutrition - due to viral illness History of Present Illness History of Present Illness 08/05 Patient evaluated and examined at bedside. Performed 6-minute walk needs 2 L at rest 5 L with activity he is not having any complaints today overall. Eager to discharge today. Agree with discharge home. I spent approximately 35 minutes coordinating planning and [id number] with this patient regarding discharge. I did also spend 10 minutes with him regarding advance care planning he would like to remain full code moving forward. 08/04 Patient evaluated and examined at bedside. He was up in the chair on 8 L nasal cannula tolerating well. Notably weaned oxygen yesterday. We will continue to wean today. Actually plan for 6-minute walk in the morning and he may be able to discharge tomorrow if continued improvement. 08/03 Patient evaluated and examined at bedside. He was up in the chair still on Vapotherm. Reports that he was feeling significantly better than yesterday says he got up from the chair on his own without feeling short of breath. Requested to bedside nurse to aggressively wean oxygen. A lot of social factors at home giving patient anxiety when he cannot be home to assist with them. Informed him we did start aggressively weaning oxygen. If Big improvements made possible discharge early next week. 08/02/2021: Patient seen and examined in the medical floor Patient was transferred to the medical floor this morning. He is now on Vapotherm 30L via NC with 70% FiO2 and SpO2 in the 90s. Patient is awake, alert, talkative, and NAD Patient expresses that he would like to go home soon. Patient works for [employer] and would be doing light work once discharged from the hospital. Tolerating PO with water at bedside. No conversational dyspnea. Chart reviewed Discussed with RN 08/01/2021: Patient seen and examined in the ICU He is now on Vapotherm 30L via NC with 80% FiO2 and 95% SpO2. Tolerating PO with water at bedside. No conversational dyspnea. Chart reviewed Discussed with RN 07/31/2021: Patient seen and examined in the ICU Discussed with RN He is still on Vapotherm 40L via NC with 96% SpO2. No conversational dyspnea. Chart reviewed 07/30/2021 Patient seen and examined in the ICU Chart reviewed Discussed with RN He is still on Vapotherm 07/29/2021 Patient seen and examined in the ICU Discussed with RN Chart reviewed Mr Jalloh is a 61 year old male with no past medical history who presents with fever, chills, fatigue, and progressive shortness of breath. Started feeling badly on 07/18/2021. He thinks on 07/16/2021 he was exposed to COVID 19 at the ED at [facility] when he took his son there for URI symptoms. Has has loss of appetite and loss of taste and smell since 07/20/2021 overnight. His symptoms progressed over the weekend and failed to improve so he came to the emergency department on 07/23/2021 and was tested positive for COVID-19. Symptoms have persisted despite treatment with Tylenol, ibuprofen he continues to have fevers. He checked his pulse ox and it was dropping into the 80s so presented for emergency treatment. Denies chest pain, lower extremity edema. He is not vaccinated against Covid 19, does not smoke, drink, or use illicit drugs. Lives with his and son at home. WBC 5.9, Hb 15.6, platelets 183, NA 134, K3.8, BUN 13, CR 1.2, glucose 113, calcium 8.4, bilirubin 0.7, AST 53, ALT 34, alk phos 43, albumin 3. EKG normal sinus rhythm rate of [address] segment abnormalities or T wave inversions QTC 439 Chest radiograph worsened bilaterally with interstitial changes since 07/23/2021. Admitted for further care. 07/27/2021: Low-grade fever overnight, T-max 99.8 F. Breathing on 10 L nasal cannula. CRP 69.2, not quite the cutoff to qualify for Actemra. Continue remdesivir, with close monitoring of LFTs (last day should be 07/30). Continue Decadron to complete 10-day course. 07/28/2021: Afebrile. States he had a rough morning, woke up with some coughing spells that causeed O2 desaturation. Was previously breathing on 10-12 L by nasal cannula. He was moved to ICU because felt he would benefit on high flow nasal cannula. When seen in ICU he states he is already breathing much better. Explained to patient that if this is the case he may be moved back to his original room if his oxygen saturations can be maintained on less than high flow nasal cannula. Continue remdesivir, with monitoring of LFTs. Continue Decadron. Supportive care. Disposition: Disposition/Orders: D/C to Home Activity: Activity: Resume previous activity Diet: Diet: Regular Medications: Home Meds Active Scripts Aspirin (ASPIRIN) 81 Mg Tab.chew, 81 MG PO DAILYWBKFT for stroke ppx for 60 Days, #60 TAB.CHEW Prov:JERRY MORRISON MD 08/05/21 Discontinued Scripts Azithromycin (AZITHROMYCIN TABLET) 250 Mg Tablet, 250 MG PO DAILY for ANTI- BIOTIC for 4 Days, #4 TAB 0 Refills Prov:BELINDA HICKEY DO 07/23/21 Scheduled Aspirin (Aspirin), 81 MG PO DAILYWBKFT Discontinued Medications Azithromycin (Azithromycin Tablet), 250 MG PO DAILY Justicifation of Admission Dx: Justifications for Admission: Justification of Admission Dx: Yes (Acute hypoxic respiratory failure secondary to COVID-19 pneumonia) JERRY MORRISON MD Aug 05, 2021 10:11
[2021-08-05 11:55] VITALS: BP 111/59
--- NOTE | 2021-08-05 13:45 | NUR ---
Discharge Note: MACO MCKOY [address] [place] [address] Discharge instructions and discharge home medications reviewed with Patient and a copy given. All questions have been answered and understanding verbalized. The following instructions and handouts were given: discharge instructions, COVID education, PNA education, O2 use at home education, contact info for Dr. Miller & O2 therapy. Discontinued lines and drains: Peripheral IV intact. Patient discharged to Home or Self Care with Spouse via Wheelchair at 1345.
== END 2021-08-05 13:45 | disposition home or self-care (01) | DRG 177 ==
LOC: ER 03:34 → 5 SOUTH 04:43 → 1 WEST ICU 07-28 08:02 → 6 SOUTH 08-02 06:44
PROVIDERS: ADMIT Internal Medicine; ATTEND Internal Medicine
PROC: 5A09357 Assistance with Respiratory Ventilation, Less than 24 Consecutive Hours, Continuous Positive Airway Pressure (ICD-10-PCS; 2021-07-26)
PROC: XW033E5 Introduction of Remdesivir Anti-infective into Peripheral Vein, Percutaneous Approach, New Technology Group 5 (ICD-10-PCS; principal; 2021-07-27)
DX: U07.1 COVID-19 (principal); E43 Unspecified severe protein-calorie malnutrition; J12.82 Pneumonia due to coronavirus disease 2019; J96.01 Acute respiratory failure with hypoxia; E87.1 Hypo-osmolality and hyponatremia; F41.9 Anxiety disorder, unspecified; Z68.21 Body mass index [BMI] 21.0-21.9, adult
CPT/HCPCS: 36415; 71045; 80048; 80053; 82248; 85007; 85025; 86140; 93005; 94618; 94760; 96374; J1100; J1650; J3262; J7050; 99285-25; G0378; J7030